=== PATIENT | male | born 1930 ===

== ENCOUNTER 2018-06-13 17:50 | Inpatient (IN) | payer MEDICARE ==
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
[2018-06-13 19:30] LABS: URINE BILIRUBIN NEGATIVE (NEGATIVE); URINE BLOOD SMALL (NEGATIVE); URINE CLARITY SLIGHTY-CLOUDY (Clear); URINE COLOR AMBER (YELLOW); URINE GLUCOSE (UA) NEG (Normal); URINE HYALINE CAST 0-2 /hpf (0-2); URINE LEUKOCYTE ESTERASE NEG Leu/uL (Negative); URINE PROTEIN 30 mg/dL (NEGATIVE)
[2018-06-13 20:07] LABS: INR 1.1; PROTHROMBIN TIME 12.9 Seconds (9.8-13.1)
[2018-06-13 20:09] LABS: BASO # 0.1 K/uL (0.0-0.2); BASO % 0.7 % (0.0-2.0); EOS # 0.1 K/uL (0.0-0.7); EOS % 0.7 % (0.0-4.0); HEMOGLOBIN 11.7 g/dL (12.0-18.0); LYMPH # 2.2 K/uL (1.0-4.3); LYMPH % 24.9 % (20.0-40.0); MEAN CELL VOLUME 95.2 fl (80.0-94.0); MEAN CORPUSCULAR HEMOGLOBIN 31.2 pg (27.0-31.0); MEAN CORPUSCULAR HGB CONC 32.8 g/dL (33.0-37.0); MEAN PLATELET VOLUME 8.6 fl (7.2-11.7); MONO # 0.6 K/uL (0.0-0.8); MONO % 6.8 % (0.0-10.0); NEUT # 5.9 K/uL (1.8-7.0); NEUT % 66.9 % (50.0-75.0); NRBC % 0.1 % (0.0-0.0); RBC 3.75 Mil/uL (4.40-5.90); RED CELL DISTRIBUTION WIDTH 12.8 % (11.5-14.5); WHITE BLOOD COUNT 8.8 K/uL (4.8-10.8)
[2018-06-13 20:10] LABS: PARTIAL THROMBOPLASTIN TIME 33.7 Seconds (25.6-37.1)
[2018-06-13 20:13] LABS: ALB/GLOB RATIO 1.2 (1.0-2.1); ALBUMIN 3.8 g/dL (3.5-5.0); BLOOD UREA NITROGEN 30 mg/dl (9-20); CALCIUM 8.8 mg/dL (8.4-10.2); GFR NON-AFRICAN AMERICAN 52
[2018-06-13 20:32] LABS: BARBITURATES, UR NEGATIVE (NEGATIVE); BENZODIAZEPINES, UR NEGATIVE (NEGATIVE); OPIATES, UR NEGATIVE (NEGATIVE); PHENCYCLIDINE, UR NEGATIVE (NEGATIVE)
[2018-06-13 20:32] LABS: ALT/SGPT 38 U/L (21-72); AST/SGOT 37 U/L (17-59)
[2018-06-13 23:27] VITALS: O2SAT 96
[2018-06-13] MEDS ORDERED: Alum-Mag Hydrox-Simethicone Susp (30 mL) PO PRN (23:44)
[2018-06-13] MEDS ORDERED: Magnesium Hydroxide Susp 30 ml UD PO PRN (23:44)
[2018-06-13] MEDS ORDERED: Bismuth Subsalicylate 262 mg/15 ml Sus (240 ml) PO PRN (23:44)
--- NOTE | 2018-06-14 00:14 | PCM.BM ---
<Jocelyn Talbert - Last Filed: 06/14/18 00:12> Treatment Plan Problems - Problems identified on initial assessmt Agitated/aggressive behavior Date Initiated: 06/14/18 Time Initiated: 00:13 Assessment reference: NA Status: Active Medication nonadherence Date Initiated: 06/14/18 Time Initiated: 00:13 Assessment reference: NA Status: Active Treatment assets and liabiliti Patient Assests: good support system Patient Liabilities: imparied memory - Milieu Protocol Maintain good personal hygiene: daily Encourage regular showers, daily Remind patient to perform daily oral care, daily Assist patient to perform ADL's Conduct patient checks and document Observation sheet: Q15 minutes Maintain personal safety: every shift Educate patient to report safety concerns to staff, every shift Monitor environment for contraband/sharps Medication safety: Monitor for expected outcome, potential side effects: every shift, Assess barriers to learning: every shift, Assess readiness for medication education: every shift <Varsha Bergeron - Last Filed: 06/14/18 09:00> - Diagnosis (1) Dementia with behavioral disturbance Status: Acute Interventions: Medication management, Individual and group therapy, Psychoeducation 06/14/18 09:00 (2) Mood disorder Status: Acute Interventions: Medication management, Individual and group therapy, Psychoeducation 06/14/18 09:01 <Lanie Park M - Last Filed: 06/15/18 14:16> Family Contact Family involvement: Family/SO is involved Family contact: Patient agrees to contact, Family has been contacted by patient, Telephone contact initiated by staff Family contact name: Raul Stevenson - son Family contacted how many times per week?: 2 - Outside Agency [facility] Care involvment: Information-sharing Agency contact number: [phone] Discharge/Continuing Care - Education Needs Education Needs: Family Medication, Family Diagnosis/Disease Process, Family Coping Skills, Family Placement options, Family Activities of Daily Living, Family Nutrition, Family Uses of Medical Equipment, Family Health Practices/Safety, Family Personal Hygiene/Grooming, Family Aftercare Safety Plan - Discharge Discharge Criteria: Tolerates medication w/o severe side effects, Free of agitation, Normal sleep pattern, Ability to care for self, Reduction of target symptoms, Other (Increased appetite) Discharge to:: Group Home Facility, Other (24 hour/care Assisted Living Facility) - Additional Comments 06/15/18 14:13 Pt discussed in team meeting. Reason for hospitalization reviewed and discussed. Pt's social and medical issues reviewed. Pt's medications reviewed and discussed. Please refer to attending psychiatrist progress not for addition information. Since admission, pt is easily irritable and agitated; pt refusing to eat and take medications. Pt is presently on 1:1 due to safety precautions. Tx plan reviewed and discussed. SW to continue to follow case. - Treatment Team Participation Discussed with Family/SO: Yes (Via telephone) Was Patient/Family/SO present at Treatment Team Meeting: Yes
[2018-06-14 07:07] LABS: IRON 44 ug/dL (49-181)
[2018-06-14 07:17] LABS: % IRON SATURATION 18 % (20-55); TOTAL IRON BINDING CAPACITY 251 ug/dL (250-450)
[2018-06-14 07:25] LABS: T4 7.18 ug/dl (5.5-11.0)
[2018-06-14 07:42] LABS: FERRITIN 93.6 ng/Ml (17.9-464)
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
--- NOTE | 2018-06-14 09:42 | CARD ---
APPROVED REPORT Date of service: 06/13/2018 EKG Measurement Heart [id number] <Conclusion> Normal sinus rhythm Right bundle branch block Left anterior fascicular block Bifascicular block Abnormal ECG
[2018-06-14] MEDS: Divalproex 125 mg Sprinkle Capsule PO SCH ×3 (09:43→17:34)
[2018-06-14] MEDS: Megestrol Acetate 40 mg/ml Cup PO SCH ×2 (09:43→12:01)
--- NOTE | 2018-06-14 10:47 | RAD ---
Date of service: 06/13/2018 HISTORY: ams COMPARISON: No prior. FINDINGS: LUNGS: No active pulmonary disease. PLEURA: No significant pleural effusion identified, no pneumothorax apparent. CARDIOVASCULAR: Calcific atherosclerotic changes are seen related to the thoracic aorta. Normal cardiac size. No pulmonary vascular congestion. OSSEOUS STRUCTURES: No significant abnormalities. VISUALIZED UPPER ABDOMEN: Normal. OTHER FINDINGS: None. IMPRESSION: No acute cardiopulmonary disease appreciated.
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
[2018-06-14] MEDS ORDERED: Dextrose 50% SYRINGE Inj (50 ml) IV PRN (12:40)
[2018-06-14] MEDS ORDERED: Glucagon Recombinant 1 mg Inj IM PRN (12:40)
[2018-06-14 13:12] LABS: FOLATE 12.8 ng/mL
[2018-06-14] MEDS: Insulin Lispro (humaLOG) 100 Units/ml Inj SC SCH (17:35)
[2018-06-15] MEDS: Insulin Lispro (humaLOG) 100 Units/ml Inj SC SCH ×3 (08:48→16:36)
--- NOTE | 2018-06-15 09:17 | PCM.PYCHPN ---
Psychiatric Progress Note - Psychiatric Progress Note Patient seen today, length of contact: Pt evaluated, case discussed w/ team, chart reviewed Patient Chief Complaint: Behavioral Disturbances/ Refusal to eat Problems Identified/Issues Discussed: Pt continues to be irritable, not cooperative with interview. He threw drinks at staff yesterday. He continues to have poor PO intake and poor insight/judgment. Case discussed w/ patient's son, Raul Stevenson, . Medications reviewed. Strapping Machine Operator given permission to modify medications as medically and psychiatrically indicated. Medication Change: No Medical Record Reviewed: Yes Consults ordered or reviewed: Medicine consult Mental Status Examination - Cognitive Function Orientation: Person Memory: Impaired Attention: Poor Concentration: Poor Association: Loose Fund of Knowledge: Poor Decription of patient's judgement and insights: Poor I/J - Mood Mood: Other ("Bad") - Affect Affect: Constricted - Speech Speech: Soft - Formal Thought Process Formal Thought Process: Loosening of associations Psychotic Thoughts and Behaviors: NO AH/VH - Suicidal Ideation Suicidal Ideation: No - Homicidal Ideation Homicidal Ideation: No Goal/Treatment Plan - Goal/Treatment Plan Need for Continued Stay: Remain at risks for inpatient hospitalization, Discharge may exacerbated symptoms, Severe functional impairment Progress Toward Problem(s) and Goals/Treatment Plan: Dementia with Behavioral Disturbances; Mood Disorder NOS -Continue Depakote and Remeron -Medicine consult -Dietitian referral -Individual and group therapy -1:1 for safety -Case discussed w/ patient's son, Raul Stevenson, -Disposition planning
[2018-06-15] MEDS: Divalproex 125 mg Sprinkle Capsule PO SCH ×5 (10:58→21:07)
[2018-06-15] MEDS: Megestrol Acetate 40 mg/ml Cup PO SCH ×2 (10:59→13:37)
[2018-06-16] MEDS: Divalproex 125 mg Sprinkle Capsule PO SCH ×3 (08:42→18:41)
[2018-06-16] MEDS: Insulin Lispro (humaLOG) 100 Units/ml Inj SC SCH ×4 (08:43→21:44)
--- NOTE | 2018-06-16 09:30 | PCM.PYCHPN ---
Psychiatric Progress Note - Psychiatric Progress Note Patient seen today, length of contact: Pt evaluated, case discussed w/ team, chart reviewed Patient Chief Complaint: Behavioral Disturbances/ Refusal to eat Problems Identified/Issues Discussed: Pt continues to be irritable, not cooperative with interview. He is calmer when his family is present and is more cooperative with eating when they are present. He has not been aggressive towards staff, but curses at people. Medication Change: No Medical Record Reviewed: Yes Consults ordered or reviewed: Medicine consult Mental Status Examination - Cognitive Function Orientation: Person Memory: Impaired Attention: Poor Concentration: Poor Association: Loose Fund of Knowledge: Poor Decription of patient's judgement and insights: Poor I/J - Mood Mood: Other ("Bad") - Affect Affect: Constricted - Speech Speech: Soft - Formal Thought Process Formal Thought Process: Loosening of associations Psychotic Thoughts and Behaviors: NO AH/VH - Suicidal Ideation Suicidal Ideation: No - Homicidal Ideation Homicidal Ideation: No Goal/Treatment Plan - Goal/Treatment Plan Need for Continued Stay: Remain at risks for inpatient hospitalization, Discharge may exacerbated symptoms, Severe functional impairment Progress Toward Problem(s) and Goals/Treatment Plan: Dementia with Behavioral Disturbances; Mood Disorder NOS -Continue Depakote and Remeron -Medicine consult -Dietitian referral -Individual and group therapy -1:1 for safety -Case discussed w/ patient's son, Raul Stevenson, -Disposition planning
[2018-06-16] MEDS: Megestrol Acetate 40 mg/ml Cup PO SCH (13:31)
[2018-06-17] MEDS: Divalproex 125 mg Sprinkle Capsule PO SCH ×4 (09:00→18:07)
--- NOTE | 2018-06-17 09:15 | PCM.PYCHPN ---
Psychiatric Progress Note - Psychiatric Progress Note Patient seen today, length of contact: Pt evaluated, case discussed w/ team, chart reviewed Patient Chief Complaint: Behavioral Disturbances/ Poor appetite Problems Identified/Issues Discussed: Pt continues to be irritable, does not want to talk with science writer. He continues to have poor PO intake at times, but eats more when encouraged by his family. He has not been violent or aggressive, but continues to curse at people. Medication Change: No Medical Record Reviewed: Yes Consults ordered or reviewed: Medicine consult Mental Status Examination - Cognitive Function Orientation: Person Memory: Impaired Attention: Poor Concentration: Poor Association: Loose Fund of Knowledge: Poor Decription of patient's judgement and insights: Poor I/J - Mood Mood: Other ("Bad") - Affect Affect: Constricted - Speech Speech: Soft - Formal Thought Process Formal Thought Process: Loosening of associations Psychotic Thoughts and Behaviors: NO AH/VH - Suicidal Ideation Suicidal Ideation: No - Homicidal Ideation Homicidal Ideation: No Goal/Treatment Plan - Goal/Treatment Plan Need for Continued Stay: Remain at risks for inpatient hospitalization, Discharge may exacerbated symptoms, Severe functional impairment Progress Toward Problem(s) and Goals/Treatment Plan: Dementia with Behavioral Disturbances; Mood Disorder NOS -Continue Depakote and Remeron -Medicine consult -Dietitian referral -Individual and group therapy -1:1 for safety -Case discussed w/ patient's son, Raul Stevenson, -Disposition planning
[2018-06-17] MEDS: Insulin Lispro (humaLOG) 100 Units/ml Inj SC SCH ×3 (12:33→21:04)
[2018-06-17] MEDS: Megestrol Acetate 40 mg/ml Cup PO SCH (12:38)
[2018-06-18] MEDS: Divalproex 125 mg Sprinkle Capsule PO SCH ×4 (09:00→17:19)
[2018-06-18] MEDS: Megestrol Acetate 40 mg/ml Cup PO SCH (09:35)
[2018-06-18] MEDS: Insulin Lispro (humaLOG) 100 Units/ml Inj SC SCH ×4 (11:30→21:03)
--- NOTE | 2018-06-18 12:26 | PCM.PYCHPN ---
Psychiatric Progress Note - Psychiatric Progress Note Patient seen today, length of contact: Pt evaluated, case discussed w/ team, chart reviewed Patient Chief Complaint: seen seated in lynne chair, requires redirection, physically agressive toward staff, coursing at times, intermittent adherence with medication Problems Identified/Issues Discussed: alteration in cognition alteration in self care Medical Problems: pt chart pt being followed by hospitalist Diagnostic Results: per psychiatry per medicine per nursing per clinical social work aide per recreational therapy DSM 5 Symptoms Update: some what less irritability remains requiring total care Medication Change: No Medical Record Reviewed: Yes Consults ordered or reviewed: per hospitalist Mental Status Examination - Cognitive Function Orientation: Person Memory: Impaired Attention: Poor Concentration: Poor Association: Loose Fund of Knowledge: Poor Decription of patient's judgement and insights: poor - Mood Mood: Other ("Bad") - Affect Affect: Constricted - Speech Speech: Soft - Formal Thought Process Formal Thought Process: Loosening of associations - Suicidal Ideation Suicidal Ideation: No - Homicidal Ideation Homicidal Ideation: No Goal/Treatment Plan - Goal/Treatment Plan Need for Continued Stay: Remain at risks for inpatient hospitalization, Discharge may exacerbated symptoms, Severe functional impairment Progress Toward Problem(s) and Goals/Treatment Plan: inpt milieu adjust meds per status remains requiring 1 to to for safet/falls discharge planning in progress Estimated Date of D/C: 06/24/18 - Smoking Cessation Smoking Cessation Initiated: No Reason for not providing: pt defers
[2018-06-19] MEDS: Insulin Lispro (humaLOG) 100 Units/ml Inj SC SCH ×4 (08:33→21:22)
[2018-06-19] MEDS: Divalproex 125 mg Sprinkle Capsule PO SCH ×4 (09:33→18:37)
[2018-06-19] MEDS: Megestrol Acetate 40 mg/ml Cup PO SCH ×2 (09:34→13:18)
--- NOTE | 2018-06-19 09:38 | PCM.PYCHPN ---
Psychiatric Progress Note - Psychiatric Progress Note Patient seen today, length of contact: Pt evaluated, case discussed w/ team, chart reviewed Patient Chief Complaint: ok Problems Identified/Issues Discussed: pt evaluated seen in bed , confused oriented to person only , reported by staff to have episodes of behavioral disturbances, continues to be physically threatening and attempts to wander DSM 5 Symptoms Update: major neurocognitive disorder with behavioral disturbances Medication Change: No Medical Record Reviewed: Yes Mental Status Examination - Cognitive Function Orientation: Person Memory: Impaired Attention: Poor Concentration: Poor Association: Loose Fund of Knowledge: Poor - Mood Mood: Other ("Bad") - Affect Affect: Constricted - Speech Speech: Soft - Formal Thought Process Formal Thought Process: Loosening of associations - Suicidal Ideation Suicidal Ideation: No - Homicidal Ideation Homicidal Ideation: No Goal/Treatment Plan - Goal/Treatment Plan Need for Continued Stay: Remain at risks for inpatient hospitalization, Discharge may exacerbated symptoms, Severe functional impairment Progress Toward Problem(s) and Goals/Treatment Plan: continue 1:1 observation for safety continue remeron, depakote and risoperidone Estimated Date of D/C: 06/24/18
[2018-06-19] MEDS: Risperidone M tab 0.5MG PO PRN (13:16)
--- NOTE | 2018-06-20 08:46 | PCM.PYCHPN ---
Psychiatric Progress Note - Psychiatric Progress Note Patient seen today, length of contact: Pt evaluated, case discussed w/ team, chart reviewed Patient Chief Complaint: Behavioral Disturbances/ Poor appetite Problems Identified/Issues Discussed: Pt continues to be irritable, labile and agitated at times w/ intermittent PO intake. Medication Change: No Medical Record Reviewed: Yes Consults ordered or reviewed: Medicine consult Mental Status Examination - Cognitive Function Orientation: Person Memory: Impaired Attention: Poor Concentration: Poor Association: Loose Fund of Knowledge: Poor Decription of patient's judgement and insights: Poor I/J - Mood Mood: Other ("Bad") - Affect Affect: Constricted - Speech Speech: Soft - Formal Thought Process Formal Thought Process: Loosening of associations Psychotic Thoughts and Behaviors: NO AH/VH - Suicidal Ideation Suicidal Ideation: No - Homicidal Ideation Homicidal Ideation: No Goal/Treatment Plan - Goal/Treatment Plan Need for Continued Stay: Remain at risks for inpatient hospitalization, Discharge may exacerbated symptoms, Severe functional impairment Progress Toward Problem(s) and Goals/Treatment Plan: Dementia with Behavioral Disturbances; Mood Disorder NOS -Continue Depakote and Remeron -Medicine consult -Dietitian referral -Individual and group therapy -1:1 for safety -Case discussed w/ patient's son, Raul Stevenson, -Recheck VPA level -Monitor caloric intake -Disposition planning Estimated Date of D/C: 06/24/18
[2018-06-20] MEDS ORDERED: Divalproex 125 mg Sprinkle Capsule PO SCH ×3 (09:00→13:00)
[2018-06-20] MEDS: Insulin Lispro (humaLOG) 100 Units/ml Inj SC SCH ×4 (09:06→21:18)
[2018-06-20] MEDS: Megestrol Acetate 40 mg/ml Cup PO SCH (13:05)
[2018-06-20] MEDS: Divalproex 125 mg Sprinkle Capsule PO SCH ×2 (17:10→18:30)
[2018-06-21 05:56] LABS: BASO # 0.1 K/uL (0.0-0.2); BASO % 0.5 % (0.0-2.0); EOS # 0.1 K/uL (0.0-0.7); EOS % 0.6 % (0.0-4.0); HEMOGLOBIN 12.8 g/dL (12.0-18.0); LYMPH # 2.3 K/uL (1.0-4.3); LYMPH % 18.7 % (20.0-40.0); MEAN CELL VOLUME 94.4 fl (80.0-94.0); MEAN CORPUSCULAR HEMOGLOBIN 30.8 pg (27.0-31.0); MEAN CORPUSCULAR HGB CONC 32.6 g/dL (33.0-37.0); MEAN PLATELET VOLUME 7.6 fl (7.2-11.7); MONO # 1.3 K/uL (0.0-0.8); MONO % 10.2 % (0.0-10.0); NEUT # 8.6 K/uL (1.8-7.0); RBC 4.18 Mil/uL (4.40-5.90); RED CELL DISTRIBUTION WIDTH 13.1 % (11.5-14.5); WHITE BLOOD COUNT 12.3 K/uL (4.8-10.8)
[2018-06-21 06:08] LABS: ALBUMIN 3.7 g/dL (3.5-5.0); CALCIUM 9.4 mg/dL (8.4-10.2)
--- NOTE | 2018-06-21 10:50 | PCM.PYCHPN ---
Psychiatric Progress Note - Psychiatric Progress Note Patient seen today, length of contact: Pt evaluated, case discussed w/ team, chart reviewed Patient Chief Complaint: Behavioral Disturbances/ Poor appetite Problems Identified/Issues Discussed: Pt continues to be irritable, labile and agitated at times w/ intermittent PO intake. Case discussed w/ patient's sonRaul ([phone]). Medication Change: Yes (Change timing of Depakote ) Medical Record Reviewed: Yes Consults ordered or reviewed: Medicine consult Mental Status Examination - Cognitive Function Orientation: Person Memory: Impaired Attention: Poor Concentration: Poor Association: Loose Fund of Knowledge: Poor Decription of patient's judgement and insights: Poor I/J - Mood Mood: Other ("Bad") - Affect Affect: Constricted - Speech Speech: Soft - Formal Thought Process Formal Thought Process: Loosening of associations Psychotic Thoughts and Behaviors: NO AH/VH - Suicidal Ideation Suicidal Ideation: No - Homicidal Ideation Homicidal Ideation: No Goal/Treatment Plan - Goal/Treatment Plan Need for Continued Stay: Remain at risks for inpatient hospitalization, Discharge may exacerbated symptoms, Severe functional impairment Progress Toward Problem(s) and Goals/Treatment Plan: Dementia with Behavioral Disturbances; Mood Disorder NOS -Continue Depakote, will change timing of dosage to increase compliance -Continue Remeron -GI consult to determine if PEG tube is indicated -Medicine consult -PT -Dietitian referral -Individual and group therapy -1:1 for safety -Case discussed w/ patient's son, Raul Stevenson, -Monitor caloric intake -Disposition planning Estimated Date of D/C: 06/24/18
[2018-06-21] MEDS: Insulin Lispro (humaLOG) 100 Units/ml Inj SC SCH ×3 (11:45→21:15)
[2018-06-21] MEDS: Divalproex 125 mg Sprinkle Capsule PO SCH ×3 (13:14→19:26)
[2018-06-21] MEDS: Megestrol Acetate 40 mg/ml Cup PO SCH ×3 (13:15→19:28)
[2018-06-21] MEDS ORDERED: Divalproex 125 mg Sprinkle Capsule PO SCH (17:00)
--- NOTE | 2018-06-22 08:38 | PCM.PYCHPN ---
Psychiatric Progress Note - Psychiatric Progress Note Patient seen today, length of contact: Pt evaluated, case discussed w/ team, chart reviewed Patient Chief Complaint: Behavioral Disturbances/ Poor appetite Problems Identified/Issues Discussed: Pt continues to have poor PO intake. He is less irritable with staff, but becomes irritated with cares. Patient continues to have chronic cognitive deficits due to dementia. Medication Change: No Medical Record Reviewed: Yes Consults ordered or reviewed: Medicine consult Mental Status Examination - Cognitive Function Orientation: Person Memory: Impaired Attention: Poor Concentration: Poor Association: Loose Fund of Knowledge: Poor Decription of patient's judgement and insights: Poor I/J - Mood Mood: Other ("Bad") - Affect Affect: Constricted - Speech Speech: Soft - Formal Thought Process Formal Thought Process: Loosening of associations Psychotic Thoughts and Behaviors: NO AH/VH - Suicidal Ideation Suicidal Ideation: No - Homicidal Ideation Homicidal Ideation: No Goal/Treatment Plan - Goal/Treatment Plan Need for Continued Stay: Remain at risks for inpatient hospitalization, Discharge may exacerbated symptoms, Severe functional impairment Progress Toward Problem(s) and Goals/Treatment Plan: Dementia with Behavioral Disturbances; Mood Disorder NOS -Continue Depakote -Continue Remeron -GI consult to determine if PEG tube is indicated -Medicine consult -PT -Dietitian referral -Individual and group therapy -1:1 for safety -Case discussed w/ patient's son, Raul Stevenson, -Monitor caloric intake -Disposition planning Estimated Date of D/C: 06/24/18
[2018-06-22] MEDS: Insulin Lispro (humaLOG) 100 Units/ml Inj SC SCH ×4 (08:58→21:05)
--- NOTE | 2018-06-22 12:10 | PCM.BM ---
Treatment Plan Problems - Problems identified on initial assessmt Agitated/aggressive behavior Date Initiated: 06/14/18 Time Initiated: 00:13 Assessment reference: NA Status: Active Medication nonadherence Date Initiated: 06/14/18 Time Initiated: 00:13 Assessment reference: NA Status: Active Treatment assets and liabiliti Patient Assests: good support system Patient Liabilities: imparied memory - Milieu Protocol Maintain good personal hygiene: daily Encourage regular showers, daily Remind patient to perform daily oral care, daily Assist patient to perform ADL's Conduct patient checks and document Observation sheet: Q15 minutes Maintain personal safety: every shift Educate patient to report safety concerns to staff, every shift Monitor environment for contraband/sharps Medication safety: Monitor for expected outcome, potential side effects: every shift, Assess barriers to learning: every shift, Assess readiness for medication education: every shift Milieu Narrative: Dementia with Behavioral Disturbances; Mood Disorder NOS -Continue Depakote -Continue Remeron -GI consult to determine if PEG tube is indicated -Medicine consult -PT -Dietitian referral -Individual and group therapy -1:1 for safety -Case discussed w/ patient's son, Raul Stevenson, -Monitor caloric intake -Disposition planning Family Contact Family involvement: Family/SO is involved Family contact: Patient agrees to contact, Family has been contacted by patient, Telephone contact initiated by staff Family contact name: Raul Stevenson - son Family contacted how many times per week?: 2 - Outside Agency [facility] Care involvment: Information-sharing Agency contact number: [phone] Discharge/Continuing Care - Education Needs Education Needs: Family Medication, Family Diagnosis/Disease Process, Family Coping Skills, Family Placement options, Family Activities of Daily Living, Family Nutrition, Family Uses of Medical Equipment, Family Health Practices/Safety, Family Personal Hygiene/Grooming, Family Aftercare Safety Plan - Discharge Discharge Criteria: Tolerates medication w/o severe side effects, Free of agitation, Normal sleep pattern, Ability to care for self, Reduction of target symptoms, Other (Increased appetite) Discharge to:: Nursing Home Facility, Other (24 hour/care Assisted Living Facility) - Additional Comments 06/15/18 14:13 Pt discussed in team meeting. Reason for hospitalization reviewed and discussed. Pt's social and medical issues reviewed. Pt's medications reviewed and discussed. Please refer to attending psychiatrist progress not for addition information. Since admission, pt is easily irritable and agitated; pt refusing to eat and take medications. Pt is presently on 1:1 due to safety precautions. Tx plan reviewed and discussed. SW to continue to follow case. - Treatment Team Participation Patient/Family/SO Statement: Dementia with Behavioral Disturbances; Mood Disorder NOS -Continue Depakote -Continue Remeron -GI consult to determine if PEG tube is indicated -Medicine consult -PT -Dietitian referral -Individual and group therapy -1:1 for safety -Case discussed w/ patient's son, Raul Stevenson, -Monitor caloric intake -Disposition planning Discussed with Family/SO: Yes (Via telephone) Was Patient/Family/SO present at Treatment Team Meeting: Yes Treatment Plan Review Patient participation: No Family/SO/Caregiver participation: No Additional Comments: Pt discussed in team meeting. Pt unable to attend team meeting due to current mental status. Pt has a Health care proxy on file. Pt's progress and bx on the unit reviewed and discussed. Pt remains increasingly confused and forgetful. Pt continues to refuse to eat despite multiple encouragement and promptings. Pt also continues to refuse prescribed medications; however, will comply if family is present. Pt's family observed to bring food from home; however, pt observed to continue to have poor intake. GI consult requested to discuss and review other treatment and intervention options. Pt remains on 1:1 for safety. Pt's medical issues reviewed and RN/MD to continue to monitor pt medically. Pt continues to display aggressive bx's during cares. Tx plan reviewed and discussed. SW to continue to follow case. - Problem Agitated/aggressive behavior Date Initiated: 06/13/18 Time Initiated: 00:13 Progress toward outcomes: unchanged (Pt continues to present with aggressive bx during cares and when re-directed.) Medication nonadherence Date Initiated: 06/13/18 Time Initiated: 00:13 Progress toward outcomes: unchanged (Pt continues to refuse to take his medications. Pt is intermittently compliant with medications if given by family during visiting hours.) Less Than Optimal Nutrition Date Initiated: 06/13/18 Time Initiated: 12:11 Progress toward outcomes: unchanged (Pt refusing to eat despite encouragement and motivation. Pt's appetite is poor.) - Discharge / Continuing Care Discharge to:: Nursing Home Facility Behavioral Health Services: Other (Medication management) Health Needs: Follow up care/test, Doctor appointments, Special equipment, Nutritional, Medications/Rx, Educational
[2018-06-22] MEDS: Divalproex 125 mg Sprinkle Capsule PO SCH (13:11)
[2018-06-22] MEDS: Megestrol Acetate 40 mg/ml Cup PO SCH (13:15)
--- NOTE | 2018-06-22 14:01 | CP.PCM.CON ---
History of Present Illness - History of Present Illness History of Present Illness: GI note for Dr. Verdugo 87M present to hospital in psych unit. GI consulted for possible PEG placement. Patient has a history of dementia with behavioral disturbances and mood disorders. He does not take enough PO diet. He has a poor appetite and with his behavioral issues, he does not allow being fed. Calorie count was startes two days ago that show patient barely had any intake. Patient only had liquid intake with some supplements. Very minimal calorie, no where near goal. PMH: HTN, Hyperthyroid, Gastritis, BPH, Dementia with Behavioral disturbances, Mood disorder Allergies: As per chart Past Patient History - Past Social History Alcohol: None Drugs: Denies - CARDIAC Hx Cardiac Disorders: No Hx Hypertension: Yes - PULMONARY Hx Tuberculosis: No - NEUROLOGICAL Hx Alzheimer's Disease: Yes Hx Dementia: Yes - RENAL Other/Comment: bph - ENDOCRINE/METABOLIC Hx Hypothyroidism: Yes - HEMATOLOGICAL/ONCOLOGICAL Hx Cancer: No Hx Human Immunodeficiency Virus (HIV): No - MUSCULOSKELETAL/RHEUMATOLOGICAL Hx Falls: Yes - GENITOURINARY/GYNECOLOGICAL Hx Sexually Transmitted Disorders: No - PSYCHIATRIC Hx Substance Use: No Meds Allergies/Adverse Reactions: Allergies Allergy/AdvReac Type Severity Reaction Status Date / Time cortisone Allergy RASH Verified 06/13/18 17:53 prednisone Allergy RASH Verified 06/13/18 17:53 - Medications Medications: Current Medications Acetaminophen (Tylenol 325mg Tab) 650 mg PO Q4 PRN PRN Reason: Pain, moderate (4-7) Al Hydrox/Mg Hydrox/Simethicone (Maalox Plus 30 Ml) 30 ml PO Q4 PRN PRN Reason: Dyspepsia Amlodipine Besylate (Norvasc) 10 mg PO DAILY [facility] Last Admin: 06/22/18 08:59 Dose: Not Given Bismuth Subsalicylate (Pepto-Bismol) 524 mg PO Q4 PRN PRN Reason: Diarrhea Dextrose (Dextrose 50% Inj) 0 ml IV STAT PRN; Protocol PRN Reason: Hypoglycemia Protocol Dextrose (Glutose 15) 0 gm PO ONCE PRN; Protocol PRN Reason: Hypoglycemia Protocol Divalproex Sodium (Depakote Sprinkles) 1,000 mg PO DAILY@1300 [facility] Last Admin: 06/22/18 13:11 Dose: 1,000 mg Donepezil HCl (Aricept) 10 mg PO HS [facility] Last Admin: 06/21/18 21:15 Dose: Not Given Famotidine (Pepcid) 20 mg PO DAILY [facility] Last Admin: 06/22/18 08:59 Dose: Not Given Glucagon (Glucagen Diagnostic Kit) 0 mg IM STAT PRN; Protocol PRN Reason: Hypoglycemia Protocol Insulin Human Lispro (Humalog) 0 units SC [facility]; Protocol Last Admin: 06/22/18 13:14 Dose: Not Given Lorazepam (Ativan) 0.5 mg PO HS PRN PRN Reason: Insomnia Stop: 06/27/18 23:45 Lorazepam (Ativan) 0.5 mg PO Q6 PRN PRN Reason: Anixety/Agitation Stop: 06/27/18 23:45 Lorazepam (Ativan) 0.5 mg IM Q8 PRN PRN Reason: Agitation Magnesium Hydroxide (Milk Of Magnesia) 30 ml PO HS PRN PRN Reason: Constipation Megestrol Acetate (Megace) 400 mg PO DAILY [facility] Last Admin: 06/22/18 13:15 Dose: 400 mg Mirtazapine (Remeron 15mg Odt) 15 mg PO HS [facility] Last Admin: 06/21/18 21:15 Dose: Not Given Propylthiouracil (Propylthiouracil) 50 mg PO DAILY [facility] Last Admin: 06/22/18 08:59 Dose: Not Given Risperidone (Risperdal M-Tab) 0.5 mg PO Q12 PRN PRN Reason: Agitation Last Admin: 06/19/18 13:16 Dose: 0.5 mg Tamsulosin HCl (Flomax) 0.4 mg PO DAILY [facility] Last Admin: 06/22/18 08:58 Dose: Not Given Physical Exam - Constitutional Appears: Combative (when approached) - Respiratory Exam Respiratory Exam: Clear to Auscultation Bilateral, NORMAL BREATHING PATTERN - Cardiovascular Exam Cardiovascular Exam: REGULAR RHYTHM, +S1, +S2 - GI/Abdominal Exam GI & Abdominal Exam: Soft. absent: Distended, Firm, Guarding, Rebound, Rigid, Tenderness - Extremities Exam Extremities exam: Negative for: pedal edema, tenderness - Neurological Exam Additional comments: dementia Results - Vital Signs Recent Vital Signs: Last Vital Signs Temp 97.1 F L 06/22/18 06:00 Pulse 74 06/22/18 06:00 Resp 18 06/22/18 06:00 BP 122/77 06/22/18 06:00 Pulse Ox 96 06/13/18 23:26 - Labs Result Diagrams: 06/21/18 05:47 06/21/18 05:47 Labs: Laboratory Results - last 24 hr 06/21/18 06/21/18 06/22/18 11:16 15:39 06:40 POC Glucose (mg/dL) 138 H 157 H 130 H Assessment & Plan - Assessment and Plan (Free Text) Assessment: 87M with poor PO intake, Consult for PEG placement Plan: - Will place patient on schedule for tomorrow for PEG - NPO past midnight. Time to be determined - will speak with family members about options on procedure Discussed with Dr. Lucina Philippe, PGY3
[2018-06-23] MEDS: Insulin Lispro (humaLOG) 100 Units/ml Inj SC SCH ×4 (08:54→21:21)
--- NOTE | 2018-06-23 09:19 | PCM.PYCHPN ---
Psychiatric Progress Note - Psychiatric Progress Note Patient seen today, length of contact: Pt evaluated, case discussed w/ team, chart reviewed Patient Chief Complaint: Behavioral Disturbances/ Poor appetite Problems Identified/Issues Discussed: Fire Apparatus Sprinkler Inspector spoke with patient's son, Raul [phone], who states that the family has decided not to get a PEG tube at this time. They are concerned about him potentially taking out the tube due to his continued behavioral disturbances, concerned about his risk for infection and his overall quality of life with the PEG tube. He stated that he has discussed this with his other siblings and his mother and they are all in agreement that they do not want a PEG tube placed. Patient continues to have intermittent periods of irritability and agitation. Patient continues to have chronic cognitive deficits due to dementia. Medication Change: No Medical Record Reviewed: Yes Consults ordered or reviewed: Medicine consult Mental Status Examination - Cognitive Function Orientation: Person Memory: Impaired Attention: Poor Concentration: Poor Association: Loose Fund of Knowledge: Poor Decription of patient's judgement and insights: Poor I/J - Mood Mood: Other ("Bad") - Affect Affect: Constricted - Speech Speech: Soft - Formal Thought Process Formal Thought Process: Loosening of associations Psychotic Thoughts and Behaviors: NO AH/VH - Suicidal Ideation Suicidal Ideation: No - Homicidal Ideation Homicidal Ideation: No Goal/Treatment Plan - Goal/Treatment Plan Need for Continued Stay: Remain at risks for inpatient hospitalization, Discharge may exacerbated symptoms, Severe functional impairment Progress Toward Problem(s) and Goals/Treatment Plan: Dementia with Behavioral Disturbances; Mood Disorder NOS -Continue Depakote, will recheck VPA level -Continue Remeron -Family has declined PEG tube placement at this time; GI consult appreciated -Medicine consult -PT -Dietitian consult -1:1 for safety -Case discussed w/ patient's son, Raul Stevenson, -Disposition planning Estimated Date of D/C: 06/27/18
[2018-06-23] MEDS: Divalproex 125 mg Sprinkle Capsule PO SCH ×2 (13:02→18:29)
[2018-06-23] MEDS: Megestrol Acetate 40 mg/ml Cup PO SCH ×2 (13:07→18:29)
--- NOTE | 2018-06-23 18:13 | CP.PCM.PN ---
Subjective - Date & Time of Evaluation Date of Evaluation: 06/23/18 Time of Evaluation: 10:00 - Subjective Subjective: No new complaints Objective - Vital Signs/Intake and Output Vital Signs (last 24 hours): Temp Pulse Resp BP Pulse Ox 97.7 F 85 19 152/89 H 96 06/23/18 06:00 06/23/18 06:00 06/23/18 06:00 06/23/18 06:00 06/13/18 23:26 - Medications Medications: Current Medications Acetaminophen (Tylenol 325mg Tab) 650 mg PO Q4 PRN PRN Reason: Pain, moderate (4-7) Al Hydrox/Mg Hydrox/Simethicone (Maalox Plus 30 Ml) 30 ml PO Q4 PRN PRN Reason: Dyspepsia Amlodipine Besylate (Norvasc) 10 mg PO DAILY [facility] Last Admin: 06/22/18 08:59 Dose: Not Given Bismuth Subsalicylate (Pepto-Bismol) 524 mg PO Q4 PRN PRN Reason: Diarrhea Dextrose (Dextrose 50% Inj) 0 ml IV STAT PRN; Protocol PRN Reason: Hypoglycemia Protocol Dextrose (Glutose 15) 0 gm PO ONCE PRN; Protocol PRN Reason: Hypoglycemia Protocol Divalproex Sodium (Depakote Sprinkles) 1,000 mg PO DAILY@1300 [facility] Last Admin: 06/22/18 13:11 Dose: 1,000 mg Donepezil HCl (Aricept) 10 mg PO HS [facility] Last Admin: 06/22/18 21:04 Dose: 10 mg Famotidine (Pepcid) 20 mg PO DAILY [facility] Last Admin: 06/22/18 08:59 Dose: Not Given Glucagon (Glucagen Diagnostic Kit) 0 mg IM STAT PRN; Protocol PRN Reason: Hypoglycemia Protocol Insulin Human Lispro (Humalog) 0 units SC [facility]; Protocol Last Admin: 06/23/18 16:27 Dose: Not Given Lorazepam (Ativan) 0.5 mg PO HS PRN PRN Reason: Insomnia Stop: 06/27/18 23:45 Lorazepam (Ativan) 0.5 mg PO Q6 PRN PRN Reason: Anixety/Agitation Stop: 06/27/18 23:45 Lorazepam (Ativan) 0.5 mg IM Q8 PRN PRN Reason: Agitation Magnesium Hydroxide (Milk Of Magnesia) 30 ml PO HS PRN PRN Reason: Constipation Megestrol Acetate (Megace) 400 mg PO DAILY [facility] Last Admin: 06/22/18 13:15 Dose: 400 mg Mirtazapine (Remeron 15mg Odt) 15 mg PO HS [facility] Last Admin: 06/22/18 21:04 Dose: 15 mg Propylthiouracil (Propylthiouracil) 50 mg PO DAILY [facility] Last Admin: 06/22/18 08:59 Dose: Not Given Risperidone (Risperdal M-Tab) 0.5 mg PO Q12 PRN PRN Reason: Agitation Last Admin: 06/19/18 13:16 Dose: 0.5 mg Tamsulosin HCl (Flomax) 0.4 mg PO DAILY [facility] Last Admin: 06/22/18 08:58 Dose: Not Given - Labs Labs: 06/21/18 05:47 06/21/18 05:47 PT 12.9 Seconds (9.8-13.1) 06/13/18 19:00 INR 1.1 06/13/18 19:00 APTT 33.7 Seconds (25.6-37.1) 06/13/18 19:00 - Head Exam Head Exam: ATRAUMATIC - Eye Exam Eye Exam: PERRL - ENT Exam ENT Exam: Mucous Membranes Moist - Neck Exam Neck Exam: Full ROM - Cardiovascular Exam Cardiovascular Exam: REGULAR RHYTHM - GI/Abdominal Exam GI & Abdominal Exam: Soft Assessment and Plan (1) Weight decreasing Assessment & Plan: Athis point family has decided against PEG procedure. If patient continues to be unable to ingest adequate calories reconsult with me. Status: Acute
[2018-06-24] MEDS: Insulin Lispro (humaLOG) 100 Units/ml Inj SC SCH ×4 (07:30→21:19)
--- NOTE | 2018-06-24 10:57 | PCM.PYCHPN ---
Psychiatric Progress Note - Psychiatric Progress Note Patient seen today, length of contact: Pt evaluated, case discussed w/ team, chart reviewed Patient Chief Complaint: Behavioral Disturbances/ Poor appetite Problems Identified/Issues Discussed: Patient is less irritable. No acute aggression or threatening behaviors. He has better compliance with medications and eating when his family assists him. Tube Coverer spoke with patient's son on 06/23/18, Raul [phone], who states that the family has decided not to get a PEG tube at this time. They are concerned about him potentially taking out the tube due to his continued behavioral disturbances, concerned about his risk for infection and his overall quality of life with the PEG tube. He stated that he has discussed this with his other siblings and his mother and they are all in agreement that they do not want a PEG tube placed. Medication Change: No Medical Record Reviewed: Yes Consults ordered or reviewed: Medicine consult Mental Status Examination - Cognitive Function Orientation: Person Memory: Impaired Attention: Poor Concentration: Poor Association: Loose Fund of Knowledge: Poor Decription of patient's judgement and insights: Poor I/J - Mood Mood: Other ("Bad") - Affect Affect: Constricted - Speech Speech: Soft - Formal Thought Process Formal Thought Process: Loosening of associations Psychotic Thoughts and Behaviors: NO AH/VH - Suicidal Ideation Suicidal Ideation: No - Homicidal Ideation Homicidal Ideation: No Goal/Treatment Plan - Goal/Treatment Plan Need for Continued Stay: Discharge may exacerbated symptoms, Severe functional impairment Progress Toward Problem(s) and Goals/Treatment Plan: Dementia with Behavioral Disturbances; Mood Disorder NOS -Continue Depakote, will recheck VPA level -Continue Remeron -Family has declined PEG tube placement at this time; GI consult appreciated -Medicine consult -PT -Dietitian consult -1:1 for safety -Case discussed w/ patient's son, Raul Stevenson, -Disposition planning Estimated Date of D/C: 06/28/18
[2018-06-24] MEDS: Divalproex 125 mg Sprinkle Capsule PO SCH (13:32)
[2018-06-24] MEDS: Risperidone M tab 0.5MG PO PRN (13:33)
[2018-06-24] MEDS: Megestrol Acetate 40 mg/ml Cup PO SCH (13:34)
[2018-06-25] MEDS: Insulin Lispro (humaLOG) 100 Units/ml Inj SC SCH ×4 (07:30→21:10)
--- NOTE | 2018-06-25 09:14 | PCM.PYCHPN ---
Psychiatric Progress Note - Psychiatric Progress Note Patient seen today, length of contact: Pt evaluated, case discussed w/ team, chart reviewed Patient Chief Complaint: fine Problems Identified/Issues Discussed: pt evaluated seen in bed , confused oriented to person only , calmer but reported by staff to have episodes of behavioral disturbances,trying to wander no reported side effects denied S/H I DSM 5 Symptoms Update: major neurocognitive disorder Medication Change: No Medical Record Reviewed: Yes Mental Status Examination - Cognitive Function Orientation: Person Memory: Impaired Attention: Poor Concentration: Poor Association: Loose Fund of Knowledge: Poor - Mood Mood: Other ("Bad") - Affect Affect: Constricted - Speech Speech: Soft - Formal Thought Process Formal Thought Process: Loosening of associations - Suicidal Ideation Suicidal Ideation: No - Homicidal Ideation Homicidal Ideation: No Goal/Treatment Plan - Goal/Treatment Plan Need for Continued Stay: Discharge may exacerbated symptoms, Severe functional impairment Progress Toward Problem(s) and Goals/Treatment Plan: continue 1:1 observation for safety continue remeron, depakote and risoperidone Estimated Date of D/C: 06/28/18
[2018-06-25] MEDS: Megestrol Acetate 40 mg/ml Cup PO SCH (12:36)
[2018-06-25] MEDS: Divalproex 125 mg Sprinkle Capsule PO SCH (12:38)
[2018-06-25] MEDS: Risperidone M tab 0.5MG PO PRN (12:39)
[2018-06-26 08:08] LABS: BASO % 0.2 % (0.0-2.0); EOS # 0.1 K/uL (0.0-0.7); EOS % 0.4 % (0.0-4.0); HEMOGLOBIN 14.9 g/dL (12.0-18.0); LYMPH # 2.4 K/uL (1.0-4.3); LYMPH % 12.6 % (20.0-40.0); MEAN CELL VOLUME 96.7 fl (80.0-94.0); MEAN CORPUSCULAR HEMOGLOBIN 30.7 pg (27.0-31.0); MEAN CORPUSCULAR HGB CONC 31.7 g/dL (33.0-37.0); MEAN PLATELET VOLUME 8.1 fl (7.2-11.7); MONO # 0.7 K/uL (0.0-0.8); MONO % 3.6 % (0.0-10.0); NEUT # 15.7 K/uL (1.8-7.0); NEUT % 83.2 % (50.0-75.0); NRBC % 0.1 % (0.0-0.0); RBC 4.86 Mil/uL (4.40-5.90); RED CELL DISTRIBUTION WIDTH 13.6 % (11.5-14.5)
[2018-06-26 08:37] LABS: WHITE BLOOD COUNT 18.8 K/uL (4.8-10.8)
[2018-06-26 08:38] LABS: ALBUMIN 4.1 g/dL (3.5-5.0); CALCIUM 9.8 mg/dL (8.4-10.2)
--- NOTE | 2018-06-26 14:01 | PCM.PYCHPN ---
Psychiatric Progress Note - Psychiatric Progress Note Patient seen today, length of contact: Pt evaluated, case discussed w/ team, chart reviewed Patient Chief Complaint: OK Problems Identified/Issues Discussed: pt evaluated seen in bed , confused oriented to person only , reported by staff to have episodes of behavioral disturbances,combative at times and trying to wander no reported side effects denied S/H I DSM 5 Symptoms Update: MAJOR NUROCOGNITIVE DISORDER Medication Change: No Medical Record Reviewed: Yes Mental Status Examination - Cognitive Function Orientation: Person Memory: Impaired Attention: Poor Concentration: Poor Association: Loose Fund of Knowledge: Poor - Mood Mood: Other ("Bad") - Affect Affect: Constricted - Speech Speech: Soft - Formal Thought Process Formal Thought Process: Loosening of associations - Suicidal Ideation Suicidal Ideation: No - Homicidal Ideation Homicidal Ideation: No Goal/Treatment Plan - Goal/Treatment Plan Need for Continued Stay: Discharge may exacerbated symptoms, Severe functional impairment Progress Toward Problem(s) and Goals/Treatment Plan: continue 1:1 observation for safety continue remeron, depakote and risoperidone Estimated Date of D/C: 06/28/18
[2018-06-26] MEDS: Insulin Lispro (humaLOG) 100 Units/ml Inj SC SCH ×3 (14:31→21:30)
[2018-06-26] MEDS: Divalproex 125 mg Sprinkle Capsule PO SCH (14:32)
[2018-06-26] MEDS: Megestrol Acetate 40 mg/ml Cup PO SCH (14:32)
[2018-06-26] MEDS: Sodium Chloride 0.45% 1,000 ML IV SCH (14:46)
[2018-06-27] MEDS: Sodium Chloride 0.45% 1,000 ML IV SCH ×4 (02:46→21:42)
[2018-06-27 08:36] LABS: BASO % 0.2 % (0.0-2.0); EOS # 0.1 K/uL (0.0-0.7); EOS % 0.6 % (0.0-4.0); HEMOGLOBIN 14.1 g/dL (12.0-18.0); LYMPH # 2.3 K/uL (1.0-4.3); LYMPH % 9.2 % (20.0-40.0); MEAN CELL VOLUME 98.9 fl (80.0-94.0); MEAN CORPUSCULAR HEMOGLOBIN 30.7 pg (27.0-31.0); MEAN CORPUSCULAR HGB CONC 31.1 g/dL (33.0-37.0); MEAN PLATELET VOLUME 8.3 fl (7.2-11.7); MONO % 3.8 % (0.0-10.0); NEUT # 21.5 K/uL (1.8-7.0); NEUT % 86.2 % (50.0-75.0); NRBC % 0.1 % (0.0-0.0); PLATELET COUNT 324 K/uL (130-400); RBC 4.59 Mil/uL (4.40-5.90); RED CELL DISTRIBUTION WIDTH 13.6 % (11.5-14.5); WHITE BLOOD COUNT 24.9 K/uL (4.8-10.8)
--- NOTE | 2018-06-27 09:43 | PCM.PYCHPN ---
Psychiatric Progress Note - Psychiatric Progress Note Patient seen today, length of contact: Pt evaluated, case discussed w/ team, chart reviewed Patient Chief Complaint: Behavioral Disturbances/ Poor appetite Problems Identified/Issues Discussed: Patient seems to be at a new baseline of functioning due to chronic worsening dementia. He is not acutely aggressive or threatening. He continues to have poor appetite and PO intake, but patient's family is not agreeable to PEG tube placement. Will discuss senior care treatment options with the family. Diagnostic Results: VPA <10 on 06/26/18 Medication Change: No Medical Record Reviewed: Yes Consults ordered or reviewed: Medicine consult Mental Status Examination - Cognitive Function Orientation: Person Memory: Impaired Attention: Poor Concentration: Poor Association: Loose Fund of Knowledge: Poor Decription of patient's judgement and insights: Chronic poor I/J - Mood Mood: Neutral - Affect Affect: Constricted - Speech Speech: Soft - Formal Thought Process Formal Thought Process: Loosening of associations Psychotic Thoughts and Behaviors: NO AH/VH - Suicidal Ideation Suicidal Ideation: No - Homicidal Ideation Homicidal Ideation: No Goal/Treatment Plan - Goal/Treatment Plan Need for Continued Stay: Severe functional impairment Progress Toward Problem(s) and Goals/Treatment Plan: Dementia with Behavioral Disturbances; Mood Disorder NOS -Continue Depakote, patient not currently compliant with treatment, VPA <10 -Continue Remeron -Family has declined PEG tube placement at this time; GI consult appreciated -Medicine consult -PT -Dietitian consult -Case discussed w/ patient's son, Raul Stevenson, -Disposition planning- will discuss termite treater helper treatment options with the family Estimated Date of D/C: 06/28/18
[2018-06-27 10:13] LABS: BANDS 2 % (0-2); LYMPHOCYTE 8 % (20-50); METAMYELOCYTE 1 % (0-0); MONOCYTE 4 % (0-10); NEUTROPHIL 85 % (42-75); TOTAL CELLS COUNTED 100
[2018-06-27 10:15] LABS: OVALOCYTES SLIGHT; PLATELET ESTIMATE NORMAL (NORMAL); TEARDROP CELLS SLIGHT; TOXIC GRANULATION PRESENT
[2018-06-27] MEDS: Insulin Lispro (humaLOG) 100 Units/ml Inj SC SCH ×4 (12:01→21:20)
[2018-06-27] MEDS: Megestrol Acetate 40 mg/ml Cup PO SCH (13:03)
--- NOTE | 2018-06-27 15:11 | CP.PCM.PCO ---
Physician Communication Note - Physician Communication Note Physician Communication Note: patient is 87 y/o male patient with severe dementia and agreesive beghavio Assessment/Plan Progress Note - Assessment/Plan Assessment (Free Text): 87 y/o male with PMH severe dementia with behavioral problems( aggressive behaviour), DM , HTN admitted to psych for management of aggressive behavior . Patient is severely demented , aggressive and has very poor PO intake . He is DNR / DNI and family refused PEG placement . His blood work up shows worsening of his renal function , hyperanatremia and leukocytosis secondary to dehydration and poor PO intake Na 156 BUN / cr 107/2.7 Hgb 14 WBC 24 K IVF was ordered and increased PO H2O intake recommended He is awake and alert , afebrile and hemodynamically stable , RR ranging 18-20 BP 1333/73 He has poor /guarded prognosis. Recommended Hospice referral . This was discussed with nursing staff 06/27 - Problems Patient Problems: Problem List (Active/Current) Problem Status Onset Code Dementia with behavioral disturbance Acute F03.91 Mood disorder Acute F39 Weight decreasing Acute R63.4
--- NOTE | 2018-06-27 17:08 | RAD ---
Date of service: 06/27/2018 PROCEDURE: CHEST RADIOGRAPH, 1 VIEW HISTORY: Worsening cough COMPARISON: 06/13/2018. FINDINGS: LUNGS: Clear. PLEURA: No pneumothorax or pleural fluid seen. CARDIOVASCULAR: No aortic atherosclerotic calcification present. No radiographic findings to suggest acute or significant cardiovascular disease. OSSEOUS STRUCTURES: No significant abnormalities. VISUALIZED UPPER ABDOMEN: Normal. OTHER FINDINGS: None. IMPRESSION: No active disease. No acute/significant interval changes.
[2018-06-27 18:24] LABS: URINE BACTERIA MANY (<OCC); URINE BILIRUBIN NEGATIVE (NEGATIVE); URINE BLOOD MODERATE (NEGATIVE); URINE CLARITY TURBID (Clear); URINE COLOR AMBER (YELLOW); URINE GLUCOSE (UA) NEG (Normal); URINE LEUKOCYTE ESTERASE LARGE Leu/uL (Negative); URINE PROTEIN 30 mg/dL (NEGATIVE)
[2018-06-27] MEDS: Divalproex 125 mg Sprinkle Capsule PO SCH (18:36)
[2018-06-27] MEDS ORDERED: cefTRIAXone 2 GM in Sodium Chloride 0.9% 100 ML IVPB STA (20:52)
[2018-06-28 06:14] LABS: BASO # 0.1 K/uL (0.0-0.2); BASO % 0.4 % (0.0-2.0); EOS # 0.1 K/uL (0.0-0.7); EOS % 0.3 % (0.0-4.0); HEMOGLOBIN 13.2 g/dL (12.0-18.0); LYMPH % 8.9 % (20.0-40.0); MEAN CORPUSCULAR HEMOGLOBIN 30.7 pg (27.0-31.0); MEAN CORPUSCULAR HGB CONC 31.6 g/dL (33.0-37.0); MEAN PLATELET VOLUME 8.4 fl (7.2-11.7); MONO # 0.9 K/uL (0.0-0.8); MONO % 3.9 % (0.0-10.0); NEUT # 19.4 K/uL (1.8-7.0); NEUT % 86.5 % (50.0-75.0); RBC 4.32 Mil/uL (4.40-5.90); RED CELL DISTRIBUTION WIDTH 13.7 % (11.5-14.5); WHITE BLOOD COUNT 22.5 K/uL (4.8-10.8)
[2018-06-28 06:38] LABS: ALBUMIN 3.4 g/dL (3.5-5.0); CALCIUM 8.8 mg/dL (8.4-10.2)
[2018-06-28] MEDS: Insulin Lispro (humaLOG) 100 Units/ml Inj SC SCH ×4 (08:33→21:11)
[2018-06-28] MEDS: Megestrol Acetate 40 mg/ml Cup PO SCH (08:51)
[2018-06-28] MEDS: Sodium Chloride 0.45% 1,000 ML IV SCH (08:52)
--- NOTE | 2018-06-28 09:42 | PCM.PYCHPN ---
Psychiatric Progress Note - Psychiatric Progress Note Patient seen today, length of contact: Pt evaluated, case discussed w/ team, chart reviewed Patient Chief Complaint: Behavioral Disturbances/ Poor appetite Problems Identified/Issues Discussed: No new events overnight. No acute behavioral issues. Patient seems to be at a new baseline of functioning due to chronic worsening dementia. He continues to have poor appetite and PO intake, but patient's family is not agreeable to PEG tube placement. Patient started on antibiotics for acute UTI yesterday. Connie Scratcher left message for patients son, , to discuss long term care pharmacist treatment options. Pending return call. Diagnostic Results: VPA <10 on 06/26/18 Medication Change: No Medical Record Reviewed: Yes Consults ordered or reviewed: Medicine consult Mental Status Examination - Cognitive Function Orientation: Person Memory: Impaired Attention: Poor Concentration: Poor Association: Loose Fund of Knowledge: Poor Decription of patient's judgement and insights: Chronic poor I/J - Mood Mood: Neutral - Affect Affect: Constricted - Speech Speech: Soft - Formal Thought Process Formal Thought Process: Loosening of associations Psychotic Thoughts and Behaviors: NO AH/VH - Suicidal Ideation Suicidal Ideation: No - Homicidal Ideation Homicidal Ideation: No Goal/Treatment Plan - Goal/Treatment Plan Need for Continued Stay: Severe functional impairment Progress Toward Problem(s) and Goals/Treatment Plan: Dementia with Behavioral Disturbances; Mood Disorder NOS -Continue Depakote, patient not currently compliant with treatment, VPA <10 -Continue Remeron -Family has declined PEG tube placement at this time; GI consult appreciated -Medicine consult- patient started on IVF for hypernatremia and antibiotics for acute UTI -PT -Dietitian consult -Disposition planning- will discuss [facility] treatment options with the family Estimated Date of D/C: 07/01/18
--- NOTE | 2018-06-28 15:06 | CP.PCM.PN ---
Subjective - Date & Time of Evaluation Date of Evaluation: 06/28/18 Time of Evaluation: 11:00 - Subjective Subjective: patient seen examined at bedside. he appears calm, awake, and alert at time of evaluation. HD stable, no acute distress Objective - Vital Signs/Intake and Output Vital Signs (last 24 hours): Temp Pulse Resp BP Pulse Ox 97.3 F L 101 H 18 119/76 96 06/27/18 06:00 06/27/18 16:19 06/27/18 16:19 06/27/18 16:19 06/13/18 23:26 Intake and Output: GEN: WDWN, alert, cooperative HEENT: NCAT, PERRL, EOMI HEART: RRR, +S1S2, NO MRG LUNG: CTAB, NO WRR ABD: soft, NT, ND, No HSM, No masses EXT: normal pedal pulses NEURO: awake, alert SKIN: warm, dry PSYCH: difficult to obtain due to dementia. currently calm. - Medications Medications: Current Medications Acetaminophen (Tylenol 325mg Tab) 650 mg PO Q4 PRN PRN Reason: Pain, moderate (4-7) Al Hydrox/Mg Hydrox/Simethicone (Maalox Plus 30 Ml) 30 ml PO Q4 PRN PRN Reason: Dyspepsia Amlodipine Besylate (Norvasc) 10 mg PO DAILY [facility] Last Admin: 06/28/18 08:51 Dose: Not Given Bismuth Subsalicylate (Pepto-Bismol) 524 mg PO Q4 PRN PRN Reason: Diarrhea Dextrose (Dextrose 50% Inj) 0 ml IV STAT PRN; Protocol PRN Reason: Hypoglycemia Protocol Dextrose (Glutose 15) 0 gm PO ONCE PRN; Protocol PRN Reason: Hypoglycemia Protocol Divalproex Sodium (Depakote Sprinkles) 1,000 mg PO DAILY@1300 [facility] Last Admin: 06/27/18 18:36 Dose: Not Given Donepezil HCl (Aricept) 10 mg PO HS [facility] Last Admin: 06/27/18 21:20 Dose: Not Given Famotidine (Pepcid) 20 mg PO DAILY [facility] Last Admin: 06/28/18 08:51 Dose: Not Given Glucagon (Glucagen Diagnostic Kit) 0 mg IM STAT PRN; Protocol PRN Reason: Hypoglycemia Protocol Haloperidol Lactate (Haldol) 0.5 mg IM Q6 PRN PRN Reason: Agitation Ceftriaxone Sodium 1 gm/ (Sodium Chloride) 100 mls @ 100 mls/hr IVPB DAILY [facility]; Protocol Last Admin: 06/28/18 08:40 Dose: 100 mls/hr Insulin Human Lispro (Humalog) 0 units SC [facility]; Protocol Last Admin: 06/28/18 08:33 Dose: Not Given Lorazepam (Ativan) 0.5 mg IM Q8 PRN PRN Reason: Agitation Magnesium Hydroxide (Milk Of Magnesia) 30 ml PO HS PRN PRN Reason: Constipation Megestrol Acetate (Megace) 400 mg PO DAILY [facility] Last Admin: 06/28/18 08:51 Dose: Not Given Mirtazapine (Remeron 15mg Odt) 15 mg PO HS [facility] Last Admin: 06/27/18 21:21 Dose: Not Given Propylthiouracil (Propylthiouracil) 50 mg PO DAILY [facility] Last Admin: 06/28/18 08:51 Dose: Not Given Risperidone (Risperdal M-Tab) 0.5 mg PO Q12 PRN PRN Reason: Agitation Last Admin: 06/25/18 12:39 Dose: 0.5 mg Tamsulosin HCl (Flomax) 0.4 mg PO DAILY [facility] Last Admin: 06/28/18 08:51 Dose: Not Given - Labs Labs: 06/28/18 05:30 06/28/18 05:30 PT 12.9 Seconds (9.8-13.1) 06/13/18 19:00 INR 1.1 06/13/18 19:00 APTT 33.7 Seconds (25.6-37.1) 06/13/18 19:00 Assessment and Plan - Assessment and Plan (Free Text) Plan: 87 year old male, hx of dementia, HTN, hyperthyroid, gastritis, BPH, admitted to the medical center for dementia with behavioral disturbances 15 days ago. Patient's WBC was found to be elevated 2 days ago, bands 2 yesterday, BUN 107, 99, Scr 2.7, 2.5, Na 159, K 5.5, patient HD stable. UA +LE, procal 0.25. Patient also has poor PO intake, family refuses PEG, however would like acute treatment of UTI likely secondary to urinary retention? and dehydration. Patient was initiated on Rocephin yesterday, 1/2 NS. Change fluids to D5W, as hyponatremia is likely free water deficit. Urology consult requested. UTI 2/2 urinary retention - afebrile, mild tachycardia 101 today - UA +LE, UCx pending - WBC improving from 24.9 to 22.5K, bands 2 yesterday - Rocephin day 2 today - Urology consult requested, appreciated, Dr. Lopes Hypernatremia Hyperkalemia - likely due to free water deficit - bolus 500cc D5W, and continue with D5W @ 100cc/hr, recheck tomorrow Poor PO intake - family declined PEG at this time - this may improve once UTI clears, reassess postinfection
[2018-06-28] MEDS: Divalproex 125 mg Sprinkle Capsule PO SCH (16:16)
[2018-06-28 16:49] VITALS: TEMP 98.5
[2018-06-29 07:39] LABS: CALCIUM 8.3 mg/dL (8.4-10.2)
[2018-06-29 07:42] LABS: BASO % 0.1 % (0.0-2.0); EOS # 0.1 K/uL (0.0-0.7); EOS % 0.2 % (0.0-4.0); HEMOGLOBIN 13.4 g/dL (12.0-18.0); LYMPH # 2.3 K/uL (1.0-4.3); LYMPH % 7.1 % (20.0-40.0); MEAN CELL VOLUME 98.1 fl (80.0-94.0); MEAN CORPUSCULAR HEMOGLOBIN 29.8 pg (27.0-31.0); MEAN CORPUSCULAR HGB CONC 30.4 g/dL (33.0-37.0); MEAN PLATELET VOLUME 9.2 fl (7.2-11.7); MONO # 1.1 K/uL (0.0-0.8); MONO % 3.5 % (0.0-10.0); NEUT # 28.8 K/uL (1.8-7.0); NEUT % 89.1 % (50.0-75.0); RBC 4.5 Mil/uL (4.40-5.90); RED CELL DISTRIBUTION WIDTH 14.2 % (11.5-14.5); WHITE BLOOD COUNT 32.3 K/uL (4.8-10.8)
[2018-06-29] MEDS: Megestrol Acetate 40 mg/ml Cup PO SCH (09:01)
[2018-06-29] MEDS: Insulin Lispro (humaLOG) 100 Units/ml Inj SC SCH ×3 (09:23→12:56)
[2018-06-29 11:29] VITALS: BP 157/87; PULSE 98; RESP 20
--- NOTE | 2018-06-29 11:45 | PCM.PYCHPN ---
Psychiatric Progress Note - Psychiatric Progress Note Patient seen today, length of contact: Pt evaluated, case discussed w/ team, chart reviewed Patient Chief Complaint: Behavioral Disturbances/ Poor appetite Problems Identified/Issues Discussed: No new events overnight. No acute behavioral issues. Patient is at his baseline of functioning. Dean Of Women confirmed w/ patient's family that they want continued treatment with IV fluids and antibiotics. They do not want PEG placement at this time. Diagnostic Results: VPA <10 on 06/26/18 Medication Change: No Medical Record Reviewed: Yes Consults ordered or reviewed: Medicine consult Mental Status Examination - Cognitive Function Orientation: Person Memory: Impaired Attention: Poor Concentration: Poor Association: Loose Fund of Knowledge: Poor Decription of patient's judgement and insights: Chronic poor I/J - Mood Mood: Neutral - Affect Affect: Constricted - Speech Speech: Soft - Formal Thought Process Formal Thought Process: Loosening of associations Psychotic Thoughts and Behaviors: NO AH/VH - Suicidal Ideation Suicidal Ideation: No - Homicidal Ideation Homicidal Ideation: No Goal/Treatment Plan - Goal/Treatment Plan Need for Continued Stay: Severe functional impairment Progress Toward Problem(s) and Goals/Treatment Plan: Dementia with Behavioral Disturbances; Mood Disorder NOS; patient is at his baseline of functioning -Continue Depakote -Continue Remeron -Family has declined PEG tube placement at this time; GI consult appreciated -Medicine consult- patient started on IVF for hypernatremia and antibiotics for acute UTI -PT -Dietitian consult -No 1:1 indicated at this time -Disposition planning Estimated Date of D/C: 07/01/18
[2018-06-29] MEDS ORDERED: Meropenem 1 GM in Sodium Chloride 0.9% 100 ML IVPB SCH (12:30)
[2018-06-29] MEDS: Divalproex 125 mg Sprinkle Capsule PO SCH (13:50)
--- NOTE | 2018-06-29 14:10 | CP.PCM.PN ---
Subjective - Date & Time of Evaluation Date of Evaluation: 06/29/18 Time of Evaluation: 14:06 - Subjective Subjective: pt somnolent at time of examination today continues to not take PO WBC increased to 32K despite Rocephin afebrile, however will escalate abx given stay in hospital facility, and worsening despite third gen cephalosporin cultures + gram neg rods discussed with ID, escalate abx to Merrem in consideration of ESBL as we await cultures recommend transfer to medical floor for further medical management Objective - Vital Signs/Intake and Output Vital Signs (last 24 hours): Temp Pulse Resp BP Pulse Ox 98.5 F 98 H 20 157/87 H 96 06/28/18 16:47 06/29/18 11:28 06/29/18 11:28 06/29/18 11:28 06/13/18 23:26 - Medications Medications: Current Medications Acetaminophen (Tylenol 325mg Tab) 650 mg PO Q4 PRN PRN Reason: Pain, moderate (4-7) Al Hydrox/Mg Hydrox/Simethicone (Maalox Plus 30 Ml) 30 ml PO Q4 PRN PRN Reason: Dyspepsia Amlodipine Besylate (Norvasc) 10 mg PO DAILY [facility] Last Admin: 06/29/18 09:01 Dose: Not Given Bismuth Subsalicylate (Pepto-Bismol) 524 mg PO Q4 PRN PRN Reason: Diarrhea Dextrose (Dextrose 50% Inj) 0 ml IV STAT PRN; Protocol PRN Reason: Hypoglycemia Protocol Dextrose (Glutose 15) 0 gm PO ONCE PRN; Protocol PRN Reason: Hypoglycemia Protocol Divalproex Sodium (Depakote Sprinkles) 1,000 mg PO DAILY@1300 [facility] Last Admin: 06/29/18 13:50 Dose: Not Given Donepezil HCl (Aricept) 10 mg PO HS [facility] Last Admin: 06/28/18 21:12 Dose: Not Given Famotidine (Pepcid) 20 mg PO DAILY [facility] Last Admin: 06/29/18 09:02 Dose: Not Given Glucagon (Glucagen Diagnostic Kit) 0 mg IM STAT PRN; Protocol PRN Reason: Hypoglycemia Protocol Haloperidol Lactate (Haldol) 0.5 mg IM Q6 PRN PRN Reason: Agitation Dextrose (Dextrose 5% In Water 1000 Ml) 1,000 mls @ 100 mls/hr IV .Q10H [facility] Stop: 06/29/18 15:36 Last Admin: 06/29/18 13:51 Dose: 100 mls/hr Meropenem 1 gm/ Sodium (Chloride) 100 mls @ 100 mls/hr IVPB Q8 [facility]; Protocol Last Admin: 06/29/18 14:04 Dose: 100 mls/hr Insulin Human Lispro (Humalog) 0 units SC ACHS [facility]; Protocol Last Admin: 06/29/18 12:56 Dose: 3 unit Lorazepam (Ativan) 0.5 mg IM Q8 PRN PRN Reason: Agitation Magnesium Hydroxide (Milk Of Magnesia) 30 ml PO HS PRN PRN Reason: Constipation Megestrol Acetate (Megace) 400 mg PO DAILY [facility] Last Admin: 06/29/18 09:01 Dose: Not Given Mirtazapine (Remeron 15mg Odt) 15 mg PO HS [facility] Last Admin: 06/28/18 21:12 Dose: Not Given Propylthiouracil (Propylthiouracil) 50 mg PO DAILY [facility] Last Admin: 06/29/18 09:02 Dose: Not Given Risperidone (Risperdal M-Tab) 0.5 mg PO Q12 PRN PRN Reason: Agitation Last Admin: 06/25/18 12:39 Dose: 0.5 mg Tamsulosin HCl (Flomax) 0.4 mg PO DAILY [facility] Last Admin: 06/29/18 09:01 Dose: Not Given - Labs Labs: 06/29/18 06:37 06/29/18 06:37 PT 12.9 Seconds (9.8-13.1) 06/13/18 19:00 INR 1.1 06/13/18 19:00 APTT 33.7 Seconds (25.6-37.1) 06/13/18 19:00 Assessment and Plan - Assessment and Plan (Free Text) Plan: 87 year old male, hx of dementia, HTN, hyperthyroid, gastritis, BPH, admitted to [facility] for dementia with behavioral disturbances 15 days ago. Patient's WBC was found to be elevated 2 days ago, bands 2 yesterday, BUN 107, 99, Scr 2.7, 2.5, Na 159, K 5.5, patient HD stable. UA +LE, procal 0.25. Patient also has poor PO intake, family refuses PEG, however would like acute treatment of UTI likely secondary to urinary retention? and dehydration. Patient was initiated on Rocephin yesterday, 1/2 NS. Change fluids to D5W, as hyponatremia is likely free water deficit. Urology consult requested. UTI 2/2 urinary retention - afebrile HD stable - UA +LE, UCx pending - WBC worsening to 32K from 22K yesterday - discussed with ID Dr. Mathew, escalate abx to Merrem in consideration for ESBL given stay in hospital facility, and worsening despite third gen cephalosporin - cultures + gram neg rods - Urology consult requested, appreciated, Dr. Lopes TIM - baseline SCr 1.3, BUN on admission was 30 - IMPROVING today to 73/1.8 - continue to hydrate and monitor renal function Hypernatremia Hyperkalemia - likely due to free water deficit - bolus 500cc D5W, and continue with D5W @ 100cc/hr, recheck tomorrow Poor PO intake - family declined PEG at this time - this may improve once UTI clears, reassess postinfection transfer to medical floor for further medical management
--- NOTE | 2018-06-29 14:46 | PCM.PYCHDC ---
Mental Status Examination - Mental Status Examination Orientation: Person Memory: Impaired Mood: Neutral Affect: Constricted Attention: Poor Concentration: Poor Association: Loose Fund of Knowledge: Poor Formal Thought Process: Loosening of associations Description of patient's judgement and insight: Chronic poor I/J Psychotic Thoughts and Behaviors: NO AH/VH Suicidal Ideation: No Current Homicidal Ideation?: No Discharge Summary - Discharge Note Reason for Hospitalization: HPI: 87 yo male, referred by senior care for worsening behavioral disturbances, violence towards his , non-compliance with medications, refusal to eat and poor PO intake. Patient is a poor historian and not cooperative with interview. He just answers "no" or "fuck" when asked questions. PMHx: HTN, Hyperthyroidism, Gastritis, BPH, Dementia w/ behavioral disturbance; Mood Disorder NOS ALL: Cortisone, Prednisone SHx: , resident at senior care, no drugs/etoh/cig use FHx: Unable to obtain family history from patient Laboratory Data: Abnormal Lab Results 06/28/18 06/28/18 06/28/18 06:01 11:12 15:42 WBC RBC Hgb Hct MCV MCH MCHC RDW Plt Count MPV Neut % (Auto) Lymph % (Auto) Jessamine % (Auto) Eos % (Auto) Baso % (Auto) Neut # (Auto) Lymph # (Auto) Jessamine # (Auto) Eos # (Auto) Baso # (Auto) Sodium Potassium Chloride Carbon Dioxide Anion Gap BUN Creatinine Est GFR ( Amer) Est GFR (Non-Af Amer) POC Glucose (mg/dL) 190 H 162 H 156 H Random Glucose Calcium Phosphorus Magnesium Free T4 TSH 3rd Generation 06/28/18 06/29/18 06/29/18 19:50 06:35 06:37 WBC 32.3 H RBC 4.50 Hgb 13.4 Hct 44.1 MCV 98.1 H MCH 29.8 MCHC 30.4 L RDW 14.2 Plt Count 247 MPV 9.2 Neut % (Auto) 89.1 H Lymph % (Auto) 7.1 L Jessamine % (Auto) 3.5 Eos % (Auto) 0.2 Baso % (Auto) 0.1 Neut # (Auto) 28.8 H Lymph # (Auto) 2.3 Jessamine # (Auto) 1.1 H Eos # (Auto) 0.1 Baso # (Auto) 0.0 Sodium Potassium Chloride Carbon Dioxide Anion Gap BUN Creatinine Est GFR ( Amer) Est GFR (Non-Af Amer) POC Glucose (mg/dL) 213 H 277 H Random Glucose Calcium Phosphorus Magnesium Free T4 TSH 3rd Generation 06/29/18 06/29/18 06:37 06:37 WBC RBC Hgb Hct MCV MCH MCHC RDW Plt Count MPV Neut % (Auto) Lymph % (Auto) Jessamine % (Auto) Eos % (Auto) Baso % (Auto) Neut # (Auto) Lymph # (Auto) Jessamine # (Auto) Eos # (Auto) Baso # (Auto) Sodium 153 H Potassium 3.9 Chloride 116 H Carbon Dioxide 25 Anion Gap 16 BUN 73 H Creatinine 1.8 H Est GFR ( Amer) 44 Est GFR (Non-Af Amer) 36 POC Glucose (mg/dL) Random Glucose 343 H Calcium 8.3 L Phosphorus 3.2 Magnesium 2.9 H Free T4 1.28 TSH 3rd Generation 3.81 Consultations:: List each consultation separately and include: 1. Reason for request. 2. Findings. 3. Follow-up Consultations: Medicine consult, GI consult, PT eval, Speech/Swallow Eval Summary of Hospital Course include:: 1. Description of specific treatment plan utilized for patients during their course of treatmen. 2. Summarize the time- course for resolution of acute symptoms and/or regressed behaviors. 3. Describe issues identified and worked on during hospitalization. 4. Describe medication utilized. 5. Describe medical problems identified and treated. 6. Reassessment of suicide risk Summary of Hospital Course: Patient was treated w/ Depakote and Remeron. As per medicine consult, patient needs to be transferred to medical unit for continued treatment. Drum Sprayer discussed case with patient's family (Raul) who stated that family wants continued medical treatment at this time, including IV fluids and antibiotics. They do not want the patient initiated on hospice care at this time. - Diagnosis (1) Dementia with behavioral disturbance Current Visit: Yes Status: Chronic (2) Mood disorder Current Visit: Yes Status: Chronic - Final Diagnosis (DSM 5) Condition upon Discharge: SERIOUS DSM 5: Dementia with Behavioral Disturbance; UTI Disposition: Trans to Other Acute Care Hosp Follow-up Treatment Plan: Dementia with Behavioral Disturbances; Mood Disorder NOS -Transfer to ER for further medical treatment -Drum Sprayer discussed case with patient's family (Raul) who stated that family wants continued medical treatment at this time, including IV fluids and antibiotics. They do not want the patient initiated on hospice care at this time. - Smoking Cessation Smoking Cessation Medication prescribed: No Reason for not providing: Not indicated - Antipsychotic Medications Pt discharged on 2 or more routine antipsychotic medications: No
--- NOTE | 2018-06-29 15:36 | PCM.BM ---
Treatment Plan Problems - Problems identified on initial assessmt Agitated/aggressive behavior Date Initiated: 06/14/18 Time Initiated: 00:13 Assessment reference: NA Status: Active Medication nonadherence Date Initiated: 06/14/18 Time Initiated: 00:13 Assessment reference: NA Status: Active Less Than Optimal Nutrition Time Initiated: 12:11 Treatment assets and liabiliti Patient Assests: good support system Patient Liabilities: imparied memory - Milieu Protocol Maintain good personal hygiene: daily Encourage regular showers, daily Remind patient to perform daily oral care, daily Assist patient to perform ADL's Conduct patient checks and document Observation sheet: Q15 minutes Maintain personal safety: every shift Educate patient to report safety concerns to staff, every shift Monitor environment for contraband/sharps Medication safety: Monitor for expected outcome, potential side effects: every shift, Assess barriers to learning: every shift, Assess readiness for medication education: every shift Milieu Narrative: Dementia with Behavioral Disturbances; Mood Disorder NOS -Transfer to ER for further medical treatment -Modeling And Simulation Analyst discussed case with patient's family (Raul) who stated that family wants continued medical treatment at this time, including IV fluids and anti biotics. They do not want the patient initiated on hospice care at this time. Family Contact Family involvement: Family/SO is involved Family contact: Patient agrees to contact, Family has been contacted by patient, Telephone contact initiated by staff Family contact name: Raul Stevenson - son Family contacted how many times per week?: 2 - Outside Agency [facility] Care involvment: Information-sharing Agency contact number: [phone] Discharge/Continuing Care - Education Needs Education Needs: Family Medication, Family Diagnosis/Disease Process, Family Coping Skills, Family Placement options, Family Activities of Daily Living, Family Nutrition, Family Uses of Medical Equipment, Family Health Pra ctices/Safety, Family Personal Hygiene/Grooming, Family Aftercare Safety Plan - Discharge Discharge Criteria: Tolerates medication w/o severe side effects, Free of agitation, Normal sleep pattern, Ability to care for self, Reduction of target symptoms, Other (Increased appetite) Discharge to:: Detention Facility - Additional Comments 06/15/18 14:13 Pt discussed in team meeting. Reason for hospitalization reviewed and discussed. Pt's social and medical issues reviewed. Pt's medications reviewed and discussed. Please refer to attending psychiatrist progress not for addition information. Since admission, pt is easily irritable and agitated; pt refusing to eat and take medications. Pt is presently on 1:1 due to safety precautions. Tx plan reviewed and discussed. SW to continue to follow case. - Treatment Team Participation Patient/Family/SO Statement: Dementia with Behavioral Disturbances; Mood Disorder NOS -Transfer to ER for further medical treatment -Modeling And Simulation Analyst discussed case with patient's family (Raul) who stated that family wants continued medical treatment at this time, including IV fluids and antibiotics. They do not want the patient initiated on hospice care at this time. Discussed with Family/SO: Yes (Via telephone) Was Patient/Family/SO present at Treatment Team Meeting: Yes Treatment Plan Review Patient participation: No Family/SO/Caregiver participation: No Additional Comments: Pt discussed in team meeting. Pt's tx plan reviewed. At time of team meeting at 10AM pt was pending urine culture results and with tentative discharge to facility on 07/01/2018. At that time, it was discussed to discontinue pt's 1:1 and move pt's closer tot he nurse station. Since team meeting, pt's prognosis has changed and pt is being transferred to the ED due to medical issues. - Problem Agitated/aggressive behavior Date Initiated: 06/13/18 Time Initiated: 00:13 Progress toward outcomes: unchanged (Pt continues to present with aggressive bx during cares and when re-directed.) Medication nonadherence Date Initiated: 06/13/18 Time Initiated: 00:13 Progress toward outcomes: unchanged (Pt continues to refuse to take his medications. Pt is intermittently compliant with medications if given by family during visiting hours.) Less Than Optimal Nutrition Date Initiated: 06/13/18 Time Initiated: 12:11 Progress toward outcomes: unchanged (Pt refusing to eat despite encouragement and motivation. Pt's appetite is poor.) - Discharge / Continuing Care Discharge to:: Detention Facility Health Needs: Follow up care/test, Doctor appointments, Special equipment, Nutritional, Medications/Rx, Recreational/Social
== END 2018-06-29 15:45 | disposition short-term general hospital (02) | DRG 884 ==
LOC: EDBD 17:50 → H.ER 17:50 → H.ERHOLD 22:26 → H.STEP 23:30 → UNDODISIN 06-15 13:00
PROVIDERS: ADMIT Psychiatry & Neurology Psychiatry; ATTEND Psychiatry & Neurology Psychiatry
DX: F01.51 Vascular dementia, unspecified severity, with behavioral disturbance (principal); F02.81 Dementia in other diseases classified elsewhere, unspecified severity, with behavioral disturbance; N39.0 Urinary tract infection, site not specified; E87.0 Hyperosmolality and hypernatremia; G30.9 Alzheimer's disease, unspecified; F39 Unspecified mood [affective] disorder; K29.70 Gastritis, unspecified, without bleeding; Z66 Do not resuscitate; Z88.0 Allergy status to penicillin; I10 Essential (primary) hypertension; Z87.891 Personal history of nicotine dependence; Z78.1 Physical restraint status; Z91.14 Patient's other noncompliance with medication regimen; N40.0 Benign prostatic hyperplasia without lower urinary tract symptoms; Z79.4 Long term (current) use of insulin; E05.90 Thyrotoxicosis, unspecified without thyrotoxic crisis or storm; R63.0 Anorexia

== ENCOUNTER 2018-06-29 16:03 | Inpatient (IN) | payer MEDICARE ==
--- NOTE | 2018-06-29 17:33 | ED PDOC ---
HPI: Male Pain Time Seen by Provider: 06/29/18 16:43 Chief Complaint (Nursing): Male Genitourinary Chief Complaint (Provider): Male Genitourinary History Per: Patient History/Exam Limitations: other (aggressive) Additional Complaint(s): 87 y/o male presents [facility] the ED [facility] and was sent by the primary medical team for a UTI. Patient was already started on antibiotic treatments and is only coming to the ED to switch admission order and to start medical admission. Dr. Bauer already started antibiotics and sepsis workup. Patient seen at bedside and is altered and aggressive. Patient is not oriented and not answering questions and pushing this provider away on attempts to auscultate on test. Patients vitals at bedside are stable. Past Medical History Reviewed: Historical Data, Nursing Documentation, Vital Signs Vital Signs: Last Vital Signs Temp 98.9 F 06/29/18 16:23 Pulse 82 06/29/18 16:23 Resp 18 06/29/18 16:23 BP 121/59 L 06/29/18 16:23 Pulse Ox 97 06/29/18 16:23 - Medical History PMH: Alzheimer's Disease, Dementia, HTN, Hypothyroidism Denies: Diabetes, Hepatitis, HIV, Seizures, Sexually Transmitted Disease - Home Medications Home Medications: Ambulatory Orders Medication Instructions Recorded Donepezil HCl [Aricept] 10 mg DAILY 06/13/18 Propylthiouracil 50 mg PO DAILY 06/13/18 Tamsulosin [Flomax] 0.4 mg PO DAILY 06/13/18 Dextrose 50% [Dextrose 50% Inj] 0 ml IV STAT PRN syr 06/29/18 Dextrose Oral [Glutose 15] 0 gm PO ONCE PRN tube 06/29/18 Divalproex [Depakote Sprinkles] 1,000 mg PO DAILY@1300 capsule 06/29/18 Famotidine [Pepcid] 20 mg PO DAILY tab 06/29/18 Glucagon [Glucagen Diagnostic Kit] 0 mg IM STAT PRN vial 06/29/18 LORazepam [Ativan] 0.5 mg IM Q8 PRN vial 06/29/18 Megestrol Acetate [Megace] 400 mg PO DAILY cup 06/29/18 amLODIPine [Norvasc] 10 mg PO DAILY tab 06/29/18 - Allergies Allergies/Adverse Reactions: Allergies Allergy/AdvReac Type Severity Reaction Status Date / Time cortisone Allergy RASH Verified 06/29/18 16:48 prednisone Allergy RASH Verified 06/29/18 16:48 Penicillins AdvReac Family Verified 06/29/18 16:48 uncertain Review of Systems Review Of Systems: ROS cannot be obtained secondary to pt's inabilty to answer questions. Physical Exam - Reviewed Nursing Documentation Reviewed: Yes Vital Signs Reviewed: Yes - Physical Exam Head Exam: Positive for: ATRAUMATIC, NORMOCEPHALIC Skin: Positive for: Normal Color, Warm, DRY Eye Exam: Positive for: EOMI, Normal appearance, PERRL Cardiovascular/Chest: Positive for: Regular Rate, Rhythm. Negative for: Murmur Respiratory: Positive for: Normal Breath Sounds (CTA bilaterally). Negative for: Respiratory Distress Gastrointestinal/Abdominal: Positive for: Normal Exam, Soft Extremity: Positive for: Normal ROM (moving all extremities), Other (IV in right anticubital; pneumatic compression devices on both lower limbs) Neurologic/Psych: Negative for: Oriented - ECG O2 Sat by Pulse Oximetry: 97 Medical Decision Making Medical Decision Making: Time: 17:28 Impression: Patient in ED to transfer care from psychiatry to medicine services. Confirmed with Dr. Bauer that sepsis workup has been done. Patient is on Meropenem. Admission order has been placed patient will be admitted. Scribe Attestation: Documented by Robles Adams acting as a scribe for Corrie Quijano MD. Provider Scribe Attestation: All medical record entries made by the Scribe were at my direction and personally dictated by me. I have reviewed the chart and agree that the record accurately reflects my personal performance of the history, physical exam, medic al decision making, and the department course for this patient. I have also personally directed, reviewed, and agree with the discharge instructions and disposition. Disposition - Disposition
[2018-06-29] MEDS ORDERED: Risperidone M tab 0.5MG PO PRN (17:48)
[2018-06-29] MEDS ORDERED: Dextrose 50% SYRINGE Inj (50 ml) IV PRN (18:04)
[2018-06-29] MEDS ORDERED: Glucagon Recombinant 1 mg Inj IM PRN (18:04)
--- NOTE | 2018-06-29 18:08 | CP.PCM.HP ---
<Audra Mcclain - Last Filed: 06/29/18 18:54> History of Present Illness - History of Present Illness History of Present Illness: HPI: 87 YO male with PMHx of HTN, dementia with behavior disturbance, mood disorder, BPH, hyperthyroidism presents to [facility] ED from inpatient [facility] after pt was unsuccessfully treated with IV abx for UTI. Pt was brought to [facility] from residential for increasing behavior problems, poor PO intake and poor medicine compliance. During the admission, pt was found to be positive for UTI, pt has been on tx for UTI with Rocephin but continued to have worsening leukocytosis despite tx. Of note, history is obtained from chart review and Medicine MD, unable to obtain any information from patient. Patient not answering any questions. PMHx: HTN, Hyperthyroidism, Gastritis, BPH, Dementia w/ behavioral disturbance; Mood Disorder NOS SHx: , resident at residential, no drugs/etoh/cig use Present on Admission - Present on Admission Any Indicators Present on Admission: No Past Patient History - Past Social History Smoking Status: Never Smoked Alcohol: None Drugs: Denies Home Situation {Lives}: Jail - CARDIAC Hx Hypertension: Yes - PULMONARY Hx Tuberculosis: No - NEUROLOGICAL Hx Alzheimer's Disease: Yes Hx Dementia: Yes Hx Seizures: No - RENAL Other/Comment: bph - ENDOCRINE/METABOLIC Hx Hypothyroidism: Yes - HEMATOLOGICAL/ONCOLOGICAL Hx Human Immunodeficiency Virus (HIV): No - MUSCULOSKELETAL/RHEUMATOLOGICAL Hx Falls: Yes - GENITOURINARY/GYNECOLOGICAL Hx Sexually Transmitted Disorders: No - PSYCHIATRIC Hx Substance Use: No Meds Allergies/Adverse Reactions: Allergies Allergy/AdvReac Type Severity Reaction Status Date / Time cortisone Allergy RASH Verified 06/29/18 16:48 prednisone Allergy RASH Verified 06/29/18 16:48 Penicillins AdvReac Family Verified 06/29/18 16:48 uncertain Physical Exam - Constitutional Appears: No Acute Distress, Other (patinet becomes agitated when MD tries to examined him. Uses his hands to push away MD ) - Eye Exam Eye Exam: EOMI - ENT Exam ENT Exam: Mucous Membranes Moist Results - Vital Signs Recent Vital Signs: Last Vital Signs Temp 98.9 F 06/29/18 16:23 Pulse 82 06/29/18 16:23 Resp 18 06/29/18 16:23 BP 121/59 L 06/29/18 16:23 Pulse Ox 97 06/29/18 17:45 Assessment & Plan - Assessment and Plan (Free Text) Assessment: Assessment/Plan: 87 YO male with PMHx of HTN, dementia with behavior disturbance, mood disorder, BPH, hyperthyroidism is admitted for a UTI, s/p failure with IV rocephin. Pt was admitted to [facility] for behavior problems and poor PO intake, family refuses PEG, however would like acute treatment of UTI likely secondary to urinary retention and dehydration. UTI 2/2 urinary retention -afebrile HD stable -UA +LE, UCx pending -WBC worsening to 32K from 22K yesterday -discussed with ID Dr. Mathew, escalate abx to Merrem in consideration for ESBL given stay in hospital facility, and worsening despite third gen cephalosporin -ID consulted; followup recs -cultures + gram neg rods -Urology consult requested, appreciated, Dr. Lopes Bacteremia -Bcx sig for gram neg rods -likely 2/2 to UTI bacteremia -leukocytosis with neutrophilia noted -started on Merrem -ID consulted, follow up recs TIM -baseline SCr 1.3, BUN on admission was 30 -IMPROVING today to 73/1.8 -continue to hydrate and monitor renal function Hypernatremia -likely due to free water deficit -c/w D5W @ 100cc/hr, recheck tomorrow Poor PO intake -family declined PEG at this time -this may improve once UTI clears, reassess post-infection Dementia with behavior disturbance, mood disorder -c/w medications -psych consulted -c/w 1:1 obs for patient safety Hyperthyroidism -c/w PTU NIDDM -HbA1c 7 (06/14/2018) -insulin sliding scale -hypoglyemia protocol DVT proplx -heparin SC Code status DNR/DNI <Eboni Bauer - Last Filed: 06/29/18 19:16> Results - Vital Signs Recent Vital Signs: Last Vital Signs Temp 98.9 F 06/29/18 16:23 Pulse 82 06/29/18 16:23 Resp 18 06/29/18 16:23 BP 121/59 L 06/29/18 16:23 Pulse Ox 97 06/29/18 18:57 Attending/Attestation - Attestation I have personally seen and examined this patient.: Yes I have fully participated in the care of the patient.: Yes I have reviewed all pertinent clinical information: Yes Notes (Text): 06/29/18 19:11 agree with findings and plan as above.
[2018-06-29] MEDS: Dextrose 5%/0.9% NS 1,000 ML IV SCH (18:36)
[2018-06-29] MEDS ORDERED: Insulin Regular 100 units/ml ONE (22:47)
[2018-06-29] MEDS: Insulin Regular 100 units/ml SC SCH (23:01)
[2018-06-30] MEDS: Meropenem 1 GM in Sodium Chloride 0.9% 100 ML IVPB SCH ×4 (01:02→17:44)
[2018-06-30] MEDS: Dextrose 5%/0.9% NS 1,000 ML IV SCH (04:20)
--- NOTE | 2018-06-30 09:04 | CP.PCM.CON ---
History of Present Illness - History of Present Illness History of Present Illness: Psychiatry consult note HPI: 87 yo male, initially admitted to the psychiatry unit for for worsening behavioral disturbances, violence towards his , non-compliance with medications, refusal to eat and poor PO intake. Patient was stabilized on Depakote and Remeron on the psychiatry unit. He developed hypernatremia, TIM, a UTI and bactermia and was transferred to the medical unit for continued treatment and management. Patient is currently at his baseline of functioning and is psychiatrically stable for referral back to skilled nursing when he is medically stable. Field Human Resources Manager spoke extensively to patient's family when he was a patient on the psychiatry unit. Yesterday patient's son, Raul, confirmed that patient's family wants continued medical treatment w/ IV fluids and antibiotics. They do not want PEG tube placement at this time despite patient's poor PO intake. Patient eats and takes medications best when assisted by his family during visiting hours. PMHx: HTN, Hyperthyroidism, Gastritis, BPH, DM, Dementia w/ behavioral disturbance; Mood Disorder NOS ALL: Cortisone, Prednisone, PCN SHx: , resident at skilled nursing, no drugs/etoh/cig use Impression: 87 yo male, currently at his baseline of functioning psychiatrically, is psychiatrically stable for referral back to skilled nursing when he is medically stable. -Continue Aricept, Depakote and Remeron -Recommend to check VPA level; if level <100, continue current dose Past Patient History - Past Medical History & Family History Past Medical History?: Yes - Past Social History Smoking Status: Never Smoked - CARDIAC Hx Cardiac Disorders: Yes Hx Hypertension: Yes - PULMONARY Hx Respiratory Disorders: No Hx Tuberculosis: No - NEUROLOGICAL Hx Neurological Disorder: Yes Hx Alzheimer's Disease: Yes Hx Dementia: Yes Hx Seizures: No - HEENT Hx HEENT Problems: No - RENAL Hx Chronic Kidney Disease: No Other/Comment: bph - ENDOCRINE/METABOLIC Hx Endocrine Disorders: Yes Hx Diabetes Mellitus Type 2: Yes Hx Hypothyroidism: Yes - HEMATOLOGICAL/ONCOLOGICAL Hx Blood Disorders: No Hx AIDS: No Hx Human Immunodeficiency Virus (HIV): No - INTEGUMENTARY Hx Dermatological Problems: No - MUSCULOSKELETAL/RHEUMATOLOGICAL Hx Musculoskeletal Disorders: Yes Hx Falls: Yes - GASTROINTESTINAL Hx Gastrointestinal Disorders: No - GENITOURINARY/GYNECOLOGICAL Hx Genitourinary Disorders: Yes Hx Prostate Problems: Yes (BPH) Hx Sexually Transmitted Disorders: No - PSYCHIATRIC Hx Psychophysiologic Disorder: Yes Hx Substance Use: No Other/Comment: hx of mood disorder - SURGICAL HISTORY Hx Surgeries: No - ANESTHESIA Hx Anesthesia: No Meds Allergies/Adverse Reactions: Allergies Allergy/AdvReac Type Severity Reaction Status Date / Time cortisone Allergy RASH Verified 06/29/18 16:48 prednisone Allergy RASH Verified 06/29/18 16:48 Penicillins AdvReac Family Verified 06/29/18 16:48 uncertain - Medications Medications: Current Medications Acetaminophen (Tylenol 325mg Tab) 650 mg PO Q6 PRN PRN Reason: Fever >100.4 F Amlodipine Besylate (Norvasc) 10 mg PO DAILY [facility] Dextrose (Dextrose 50% Inj) 0 ml IV STAT PRN; Protocol PRN Reason: Hypoglycemia Protocol Dextrose (Glutose 15) 0 gm PO ONCE PRN; Protocol PRN Reason: Hypoglycemia Protocol Divalproex Sodium (Depakote Sprinkles) 1,000 mg PO DAILY@1300 [facility] Donepezil HCl (Aricept) 10 mg PO DAILY [facility] Famotidine (Pepcid) 20 mg PO DAILY [facility] Glucagon (Glucagen Diagnostic Kit) 0 mg IM STAT PRN; Protocol PRN Reason: Hypoglycemia Protocol Haloperidol Lactate (Haldol) 0.5 mg IM Q6 PRN PRN Reason: Agitation Heparin Sodium (Porcine) (Heparin) 5,000 units SC Q12 [facility]; Protocol Last Admin: 06/29/18 23:00 Dose: 5,000 units Meropenem 1 gm/ Sodium (Chloride) 100 mls @ 100 mls/hr IVPB Q8 [facility]; Protocol Last Admin: 06/30/18 01:05 Dose: 100 mls/hr Dextrose (Dextrose 5% In Water 1000 Ml) 1,000 mls @ 100 mls/hr IV .Q10H [facility] Stop: 07/01/18 08:15 Insulin Human Regular (Humulin R) 0 units SC ACHS [facility]; Protocol Last Admin: 06/29/18 23:01 Dose: Not Given Lorazepam (Ativan) 0.5 mg IM Q8 PRN PRN Reason: Agitation Megestrol Acetate (Megace) 400 mg PO DAILY [facility] Mirtazapine (Remeron) 15 mg PO HS [facility] Last Admin: 06/29/18 23:39 Dose: 15 mg Propylthiouracil (Propylthiouracil) 50 mg PO DAILY [facility] Risperidone (Risperdal M-Tab) 0.5 mg PO Q12 PRN PRN Reason: Agitation Tamsulosin HCl (Flomax) 0.4 mg PO DAILY [facility] Results - Vital Signs Recent Vital Signs: Last Vital Signs Temp 98.2 F 06/30/18 00:40 Pulse 80 06/30/18 00:40 Resp 19 06/30/18 00:40 BP 120/47 L 06/30/18 00:40 Pulse Ox 98 06/30/18 00:40 - Labs Labs: Laboratory Results - last 24 hr 06/29/18 06/29/18 19:10 22:53 POC Glucose (mg/dL) 288 H 314 H
[2018-06-30] MEDS: Megestrol Acetate 40 mg/ml Cup PO SCH ×2 (10:35→16:53)
[2018-06-30] MEDS: Insulin Regular 100 units/ml SC SCH ×4 (10:37→22:55)
[2018-06-30 11:45] LABS: HEMOGLOBIN 12.1 g/dL (12.0-18.0); MEAN CELL VOLUME 98.3 fl (80.0-94.0); MEAN CORPUSCULAR HEMOGLOBIN 30.8 pg (27.0-31.0); MEAN CORPUSCULAR HGB CONC 31.4 g/dL (33.0-37.0); RBC 3.92 Mil/uL (4.40-5.90); RED CELL DISTRIBUTION WIDTH 13.5 % (11.5-14.5); WHITE BLOOD COUNT 23.4 K/uL (4.8-10.8)
[2018-06-30 12:07] LABS: CALCIUM 8.3 mg/dL (8.4-10.2)
--- NOTE | 2018-06-30 16:24 | CP.PCM.PN ---
<CaliEdwar jha - Last Filed: 06/30/18 16:19> Subjective - Date & Time of Evaluation Date of Evaluation: 06/30/18 Time of Evaluation: 08:00 - Subjective Subjective: Patient seen and evaluated at the bedside. No complaints. Slept well. Has been OOB to use bathroom. Objective - Vital Signs/Intake and Output Vital Signs (last 24 hours): Temp Pulse Resp BP Pulse Ox 98.6 F 78 15 111/50 L 95 06/30/18 01:45 06/30/18 10:36 06/30/18 01:45 06/30/18 10:36 06/30/18 01:45 - Medications Medications: Current Medications Acetaminophen (Tylenol 325mg Tab) 650 mg PO Q6 PRN PRN Reason: Fever >100.4 F Amlodipine Besylate (Norvasc) 10 mg PO DAILY [facility] Last Admin: 06/30/18 10:36 Dose: 10 mg Dextrose (Dextrose 50% Inj) 0 ml IV STAT PRN; Protocol PRN Reason: Hypoglycemia Protocol Dextrose (Glutose 15) 0 gm PO ONCE PRN; Protocol PRN Reason: Hypoglycemia Protocol Divalproex Sodium (Depakote Sprinkles) 1,000 mg PO DAILY@1300 [facility] Donepezil HCl (Aricept) 10 mg PO DAILY [facility] Last Admin: 06/30/18 10:35 Dose: 10 mg Famotidine (Pepcid) 20 mg PO DAILY [facility] Last Admin: 06/30/18 10:36 Dose: 20 mg Glucagon (Glucagen Diagnostic Kit) 0 mg IM STAT PRN; Protocol PRN Reason: Hypoglycemia Protocol Haloperidol Lactate (Haldol) 0.5 mg IM Q6 PRN PRN Reason: Agitation Heparin Sodium (Porcine) (Heparin) 5,000 units SC Q12 [facility]; Protocol Last Admin: 06/30/18 10:35 Dose: 5,000 units Meropenem 1 gm/ Sodium (Chloride) 100 mls @ 100 mls/hr IVPB Q8 [facility]; Protocol Last Admin: 06/30/18 10:36 Dose: 100 mls/hr Dextrose (Dextrose 5% In Water 1000 Ml) 1,000 mls @ 100 mls/hr IV .Q10H [facility] Stop: 07/01/18 08:15 Last Admin: 06/30/18 10:34 Dose: 100 mls/hr Insulin Human Regular (Humulin R) 0 units SC ACHS [facility]; Protocol Last Admin: 06/30/18 14:05 Dose: Not Given Lorazepam (Ativan) 0.5 mg IM Q8 PRN PRN Reason: Agitation Megestrol Acetate (Megace) 400 mg PO DAILY [facility] Last Admin: 06/30/18 10:35 Dose: 400 mg Mirtazapine (Remeron) 15 mg PO HS [facility] Last Admin: 06/29/18 23:39 Dose: 15 mg Propylthiouracil (Propylthiouracil) 50 mg PO DAILY [facility] Last Admin: 06/30/18 10:36 Dose: 50 mg Risperidone (Risperdal M-Tab) 0.5 mg PO Q12 PRN PRN Reason: Agitation Tamsulosin HCl (Flomax) 0.4 mg PO DAILY [facility] Last Admin: 06/30/18 10:35 Dose: 0.4 mg - Labs Labs: 06/30/18 11:25 06/30/18 11:25 - Constitutional Appears: Well, Non-toxic, No Acute Distress - Head Exam Head Exam: NORMAL INSPECTION - Eye Exam Eye Exam: Normal appearance - ENT Exam ENT Exam: Normal Oropharynx - Neck Exam Neck Exam: Normal Inspection - Respiratory Exam Respiratory Exam: Clear to Ausculation Bilateral. absent: Rales, Wheezes - Cardiovascular Exam Cardiovascular Exam: REGULAR RHYTHM, +S1, +S2 - GI/Abdominal Exam GI & Abdominal Exam: Soft, Normal Bowel Sounds. absent: Tenderness - Extremities Exam Extremities Exam: Normal Inspection. absent: Pedal Edema - Back Exam Back Exam: absent: CVA tenderness (L), CVA tenderness (R) - Neurological Exam Neurological Exam: Alert, Awake, Oriented x3 - Psychiatric Exam Psychiatric exam: Depressed, Flat Affect - Skin Skin Exam: Normal Color Assessment and Plan - Assessment and Plan (Free Text) Assessment: 87 YO male with PMHx of HTN, dementia with behavior disturbance, mood disorder, BPH, hyperthyroidism is admitted for a UTI, s/p failure with IV rocephin. Pt was admitted to [facility] for behavior problems and poor PO intake, family refuses PEG, however would like acute treatment of UTI likely secondary to urinary retention and dehydration. UTI 2/2 urinary retention -afebrile HD stable -UA +LE, UCx GNR, sensitivities pending -WBC worsening to 32K from 22K yesterday -discussed with ID Dr. Mathew, escalate abx to Meropenem in consideration for ESBL given stay in hospital facility, and worsening despite third gen cephalosporin -ID consulted; followup recs -Urology consult requested, appreciated, Dr. Lopes Bacteremia -Bcx sig for gram neg rods -likely 2/2 to UTI bacteremia -leukocytosis with neutrophilia noted; improved WBL 23 -started on Merrem -ID consulted, follow up recs TIM -Improved, creatinine 1.5 down from 1.8 -continue to hydrate and monitor renal function Hypernatremia -157 -likely due to free water deficit -c/w D5W @ 100cc/hr, recheck tomorrow Poor PO intake -family declined PEG at this time -this may improve once UTI clears, reassess post-infection Dementia with behavior disturbance, mood disorder -c/w medications -psych consulted -c/w 1:1 obs for patient safety Hyperthyroidism -c/w PTU NIDDM -HbA1c 7 (06/14/2018) -insulin sliding scale -hypoglyemia protocol DVT proplx -heparin SC Code status DNR/DNI <Devonte Metz D - Last Filed: 06/30/18 17:36> Objective - Vital Signs/Intake and Output Vital Signs (last 24 hours): Temp Pulse Resp BP Pulse Ox 98.2 F 76 20 137/69 93 L 06/30/18 16:53 06/30/18 16:53 06/30/18 16:53 06/30/18 16:53 06/30/18 16:53 - Medications Medications: Current Medications Acetaminophen (Tylenol 325mg Tab) 650 mg PO Q6 PRN PRN Reason: Fever >100.4 F Amlodipine Besylate (Norvasc) 10 mg PO DAILY [facility] Last Admin: 06/30/18 16:53 Dose: Not Given Dextrose (Dextrose 50% Inj) 0 ml IV STAT PRN; Protocol PRN Reason: Hypoglycemia Protocol Dextrose (Glutose 15) 0 gm PO ONCE PRN; Protocol PRN Reason: Hypoglycemia Protocol Divalproex Sodium (Depakote Sprinkles) 1,000 mg PO DAILY@1300 [facility] Last Admin: 06/30/18 16:49 Dose: Not Given Donepezil HCl (Aricept) 10 mg PO DAILY [facility] Last Admin: 06/30/18 16:52 Dose: Not Given Famotidine (Pepcid) 20 mg PO DAILY [facility] Last Admin: 06/30/18 16:53 Dose: Not Given Glucagon (Glucagen Diagnostic Kit) 0 mg IM STAT PRN; Protocol PRN Reason: Hypoglycemia Protocol Haloperidol Lactate (Haldol) 0.5 mg IM Q6 PRN PRN Reason: Agitation Heparin Sodium (Porcine) (Heparin) 5,000 units SC Q12 [facility]; Protocol Last Admin: 06/30/18 16:53 Dose: Not Given Meropenem 1 gm/ Sodium (Chloride) 100 mls @ 100 mls/hr IVPB Q8 [facility]; Protocol Last Admin: 06/30/18 10:36 Dose: 100 mls/hr Dextrose (Dextrose 5% In Water 1000 Ml) 1,000 mls @ 100 mls/hr IV .Q10H [facility] Stop: 07/01/18 08:15 Last Admin: 06/30/18 10:34 Dose: 100 mls/hr Insulin Human Regular (Humulin R) 0 units SC ACHS [facility]; Protocol Last Admin: 06/30/18 16:49 Dose: Not Given Lorazepam (Ativan) 0.5 mg IM Q8 PRN PRN Reason: Agitation Megestrol Acetate (Megace) 400 mg PO DAILY [facility] Last Admin: 06/30/18 16:53 Dose: Not Given Mirtazapine (Remeron) 15 mg PO HS [facility] Last Admin: 06/29/18 23:39 Dose: 15 mg Propylthiouracil (Propylthiouracil) 50 mg PO DAILY [facility] Last Admin: 06/30/18 16:53 Dose: Not Given Risperidone (Risperdal M-Tab) 0.5 mg PO Q12 PRN PRN Reason: Agitation Tamsulosin HCl (Flomax) 0.4 mg PO DAILY [facility] Last Admin: 06/30/18 16:53 Dose: Not Given - Labs Labs: 06/30/18 11:25 06/30/18 11:25 Attending/Attestation - Attestation I have personally seen and examined this patient.: Yes I have fully participated in the care of the patient.: Yes I have reviewed all pertinent clinical information, including history, physical exam and plan: Yes Notes (Text): 06/30/18 17:32 Patient seen and examined with resident. Case was discussed and agreed with assessment except with the findings of ESBL organism. Urine grew E coli but ESBL negative. Agreed however to continue Meropenem.
[2018-06-30] MEDS: Divalproex 125 mg Sprinkle Capsule PO SCH (16:49)
[2018-07-01] MEDS: Meropenem 1 GM in Sodium Chloride 0.9% 100 ML IVPB SCH ×2 (01:00→09:52)
[2018-07-01] MEDS: Insulin Regular 100 units/ml SC SCH ×4 (09:51→22:00)
[2018-07-01] MEDS: Megestrol Acetate 40 mg/ml Cup PO SCH (09:51)
--- NOTE | 2018-07-01 11:44 | CP.PCM.CON ---
History of Present Illness - History of Present Illness History of Present Illness: 87 YO male with PMHx of HTN, dementia with behavior disturbance, mood disorder, BPH, hyperthyroidism presents to [facility] ED from inpatient [facility]ys[facility] after pt was unsuccessfully treated with IV abx for UTI. Pt was brought to [facility] from long term for increasing behavior problems, poor PO intake and poor medicine compliance. During the admission, pt was found to be positive for UTI, pt has been on tx for UTI with Rocephin but continued to have worsening leukocytosis despite tx. Of note, history is obtained from chart review and Medicine MD, unable to obtain any information from patient. Patient not answering any questions. 87 y old male from [place] with behavioral disturbances. Leukocytosis with blood cultures positive for GNR not responding to rocephin and ID consulted Past Patient History - Past Medical History & Family History Past Medical History?: Yes - Past Social History Smoking Status: Never Smoked - CARDIAC Hx Cardiac Disorders: Yes Hx Hypertension: Yes - PULMONARY Hx Respiratory Disorders: No Hx Tuberculosis: No - NEUROLOGICAL Hx Neurological Disorder: Yes Hx Alzheimer's Disease: Yes Hx Dementia: Yes Hx Seizures: No - HEENT Hx HEENT Problems: No - RENAL Hx Chronic Kidney Disease: No Other/Comment: bph - ENDOCRINE/METABOLIC Hx Endocrine Disorders: Yes Hx Diabetes Mellitus Type 2: Yes Hx Hypothyroidism: Yes - HEMATOLOGICAL/ONCOLOGICAL Hx Blood Disorders: No Hx AIDS: No Hx Human Immunodeficiency Virus (HIV): No - INTEGUMENTARY Hx Dermatological Problems: No - MUSCULOSKELETAL/RHEUMATOLOGICAL Hx Musculoskeletal Disorders: Yes Hx Falls: Yes - GASTROINTESTINAL Hx Gastrointestinal Disorders: No - GENITOURINARY/GYNECOLOGICAL Hx Genitourinary Disorders: Yes Hx Prostate Problems: Yes (BPH) Hx Sexually Transmitted Disorders: No - PSYCHIATRIC Hx Psychophysiologic Disorder: Yes Hx Substance Use: No Other/Comment: hx of mood disorder - SURGICAL HISTORY Hx Surgeries: No - ANESTHESIA Hx Anesthesia: No Meds Allergies/Adverse Reactions: Allergies Allergy/AdvReac Type Severity Reaction Status Date / Time cortisone Allergy RASH Verified 06/29/18 16:48 prednisone Allergy RASH Verified 06/29/18 16:48 Penicillins AdvReac Family Verified 06/29/18 16:48 uncertain - Medications Medications: Current Medications Acetaminophen (Tylenol 325mg Tab) 650 mg PO Q6 PRN PRN Reason: Fever >100.4 F Amlodipine Besylate (Norvasc) 10 mg PO DAILY [facility] Last Admin: 07/01/18 09:51 Dose: Not Given Dextrose (Dextrose 50% Inj) 0 ml IV STAT PRN; Protocol PRN Reason: Hypoglycemia Protocol Dextrose (Glutose 15) 0 gm PO ONCE PRN; Protocol PRN Reason: Hypoglycemia Protocol Divalproex Sodium (Depakote Sprinkles) 1,000 mg PO DAILY@1300 [facility] Last Admin: 06/30/18 16:49 Dose: Not Given Donepezil HCl (Aricept) 10 mg PO DAILY [facility] Last Admin: 07/01/18 09:50 Dose: Not Given Famotidine (Pepcid) 20 mg PO DAILY [facility] Last Admin: 07/01/18 09:51 Dose: Not Given Glucagon (Glucagen Diagnostic Kit) 0 mg IM STAT PRN; Protocol PRN Reason: Hypoglycemia Protocol Haloperidol Lactate (Haldol) 0.5 mg IM Q6 PRN PRN Reason: Agitation Heparin Sodium (Porcine) (Heparin) 5,000 units SC Q12 [facility]; Protocol Last Admin: 07/01/18 09:51 Dose: Not Given Meropenem 1 gm/ Sodium (Chloride) 100 mls @ 100 mls/hr IVPB Q8 [facility]; Protocol Last Admin: 07/01/18 09:52 Dose: 100 mls/hr Insulin Human Regular (Humulin R) 0 units SC ACHS [facility]; Protocol Last Admin: 07/01/18 09:51 Dose: Not Given Lorazepam (Ativan) 0.5 mg IM Q8 PRN PRN Reason: Agitation Megestrol Acetate (Megace) 400 mg PO DAILY [facility] Last Admin: 07/01/18 09:51 Dose: Not Given Mirtazapine (Remeron) 15 mg PO HS [facility] Last Admin: 06/30/18 22:55 Dose: Not Given Propylthiouracil (Propylthiouracil) 50 mg PO DAILY [facility] Last Admin: 07/01/18 09:51 Dose: Not Given Risperidone (Risperdal M-Tab) 0.5 mg PO Q12 PRN PRN Reason: Agitation Tamsulosin HCl (Flomax) 0.4 mg PO DAILY [facility] Last Admin: 07/01/18 09:51 Dose: Not Given Results - Vital Signs Recent Vital Signs: Last Vital Signs Temp 98.2 F 06/30/18 16:53 Pulse 76 06/30/18 16:53 Resp 20 06/30/18 16:53 BP 137/69 06/30/18 16:53 Pulse Ox 93 L 06/30/18 16:53 - Labs Result Diagrams: 06/30/18 11:25 06/30/18 11:25 Labs: Laboratory Results - last 24 hr 06/30/18 06/30/18 06/30/18 11:25 11:25 11:25 WBC 23.4 H RBC 3.92 L Hgb 12.1 Hct 38.6 MCV 98.3 H MCH 30.8 MCHC 31.4 L RDW 13.5 Plt Count 260 Sodium 157 H Potassium 3.7 Chloride 123 H Carbon Dioxide 25 Anion Gap 13 BUN 47 H Creatinine 1.5 Est GFR ( Amer) 54 Est GFR (Non-Af Amer) 44 POC Glucose (mg/dL) Random Glucose 291 H Calcium 8.3 L Valproic Acid < 10.0 L 06/30/18 07/01/18 22:53 06:04 WBC RBC Hgb Hct MCV MCH MCHC RDW Plt Count Sodium Potassium Chloride Carbon Dioxide Anion Gap BUN Creatinine Est GFR ( Amer) Est GFR (Non-Af Amer) POC Glucose (mg/dL) 297 H 256 H Random Glucose Calcium Valproic Acid Assessment & Plan - Assessment and Plan (Free Text) Assessment: E coli bactermia secondary to UTI with leukocytosis not responding to rocephin on meropenem. Looking at sensitivities, we can switch from Meropenem to Zosyn 3.375 q 6h. Repeat blood culture in 2 days time.
[2018-07-01] MEDS: Divalproex 125 mg Sprinkle Capsule PO SCH (12:14)
[2018-07-01] MEDS: Piperacillin/Tazobact 3.375 GM in Sodium Chloride 0.9% 100 ML IVPB SCH ×2 (16:56→21:02)
[2018-07-02] MEDS: Piperacillin/Tazobact 3.375 GM in Sodium Chloride 0.9% 100 ML IVPB SCH ×4 (03:35→22:12)
[2018-07-02] MEDS: Insulin Regular 100 units/ml SC SCH ×4 (09:33→23:16)
[2018-07-02] MEDS: Megestrol Acetate 40 mg/ml Cup PO SCH (09:49)
[2018-07-02 12:05] LABS: HEMOGLOBIN 11.4 g/dL (12.0-18.0); MEAN CELL VOLUME 97.4 fl (80.0-94.0); MEAN CORPUSCULAR HGB CONC 31.8 g/dL (33.0-37.0); RBC 3.67 Mil/uL (4.40-5.90); RED CELL DISTRIBUTION WIDTH 13.4 % (11.5-14.5); WHITE BLOOD COUNT 14.9 K/uL (4.8-10.8)
[2018-07-02 12:17] LABS: BLOOD UREA NITROGEN 27 mg/dl (9-20); GFR NON-AFRICAN AMERICAN 52
--- NOTE | 2018-07-02 12:39 | CP.PCM.PN ---
<Prashant Cormiera - Last Filed: 07/02/18 12:37> Subjective - Date & Time of Evaluation Date of Evaluation: 07/02/18 Time of Evaluation: 10:15 - Subjective Subjective: Pt seen at bedside this am. Denied any physical complaints and was not very agreeable to exam - tried to swat at me with his hands. Objective - Vital Signs/Intake and Output Vital Signs (last 24 hours): Temp Pulse Resp BP Pulse Ox 98.2 F 61 19 120/63 96 07/02/18 08:09 07/02/18 08:09 07/02/18 08:09 07/02/18 08:09 07/02/18 08:09 - Medications Medications: Current Medications Acetaminophen (Tylenol 325mg Tab) 650 mg PO Q6 PRN PRN Reason: Fever >100.4 F Amlodipine Besylate (Norvasc) 10 mg PO DAILY [facility] Last Admin: 07/02/18 09:49 Dose: Not Given Dextrose (Dextrose 50% Inj) 0 ml IV STAT PRN; Protocol PRN Reason: Hypoglycemia Protocol Dextrose (Glutose 15) 0 gm PO ONCE PRN; Protocol PRN Reason: Hypoglycemia Protocol Divalproex Sodium (Depakote Sprinkles) 1,000 mg PO DAILY@1300 [facility] Last Admin: 07/01/18 12:14 Dose: Not Given Donepezil HCl (Aricept) 10 mg PO DAILY [facility] Last Admin: 07/02/18 09:48 Dose: Not Given Famotidine (Pepcid) 20 mg PO DAILY [facility] Last Admin: 07/02/18 09:49 Dose: Not Given Glucagon (Glucagen Diagnostic Kit) 0 mg IM STAT PRN; Protocol PRN Reason: Hypoglycemia Protocol Haloperidol Lactate (Haldol) 0.5 mg IM Q6 PRN PRN Reason: Agitation Heparin Sodium (Porcine) (Heparin) 5,000 units SC Q12 [facility]; Protocol Last Admin: 07/02/18 09:35 Dose: 5,000 units Piperacillin Sod/Tazobactam (Sod 3.375 gm/ Sodium Chloride) 100 mls @ 100 mls/hr IVPB Q6 [facility]; Protocol Last Admin: 07/02/18 09:25 Dose: 100 mls/hr Dextrose (Dextrose 5% In Water 1000 Ml) 1,000 mls @ 100 mls/hr IV .Q10H [facility] Stop: 07/03/18 11:16 Insulin Human Regular (Humulin R) 0 units SC ACHS [facility]; Protocol Last Admin: 07/02/18 12:33 Dose: Not Given Lorazepam (Ativan) 0.5 mg IM Q8 PRN PRN Reason: Agitation Megestrol Acetate (Megace) 400 mg PO DAILY [facility] Last Admin: 07/02/18 09:49 Dose: Not Given Mirtazapine (Remeron) 15 mg PO HS [facility] Last Admin: 07/01/18 21:11 Dose: Not Given Propylthiouracil (Propylthiouracil) 50 mg PO DAILY [facility] Last Admin: 07/02/18 09:49 Dose: Not Given Risperidone (Risperdal M-Tab) 0.5 mg PO Q12 PRN PRN Reason: Agitation Tamsulosin HCl (Flomax) 0.4 mg PO DAILY [facility] Last Admin: 07/02/18 09:49 Dose: Not Given - Labs Labs: 07/02/18 11:44 07/02/18 11:44 - Constitutional Appears: No Acute Distress, Chronically Ill - Head Exam Head Exam: NORMAL INSPECTION - Eye Exam Eye Exam: Normal appearance - Respiratory Exam Respiratory Exam: NORMAL BREATHING PATTERN. absent: Respiratory Distress - Extremities Exam Extremities Exam: absent: Pedal Edema - Neurological Exam Neurological Exam: Alert. absent: Oriented x3 - Psychiatric Exam Psychiatric exam: Agitated Assessment and Plan - Assessment and Plan (Free Text) Assessment: 87 yo male with PMHx of HTN, dementia with behavior disturbance, mood disorder, BPH, hyperthyroidism. Admitted for a UTI, s/p failure with IV rocephin. Pt was admitted to [facility] for behavior problems and poor PO intake. At this time, family refuses PEG, however would like acute treatment of UTI likely secondary to urinary retention and dehydration. Pending dispo tomorrow to hospice. Plan: UTI, secondary to urinary retention - Afebrile, hemodynamically stable - UA +LE, UCx GNR, pansensitive E. coli - WBC trending down- 14k today - ID consult- Dr. Mathew, originally was planning to escalate to meropenem in consideration for ESBL, but now changed to zosyn due to pansensitivity demonstrated in urine culture. - Urology consult requested, appreciated, Dr. Lopes Bacteremia - Blood culture +ve for pansensitive E. coli - Likely 2/2 to UTI bacteremia - Leukocytosis improving - ID consulted - recs as above TIM - Improved, creatinine 1.3 down from max 2.7 - Continue to hydrate and monitor renal function Hypernatremia - Resolved, Na 147 today - Was likely due to free water deficit - Continue with D5W @ 100cc/hr, continue to monitor Poor PO intake -Family declined PEG at this time -May be due to UTI; may improve after infection clears Dementia with behavior disturbance, mood disorder -Continue medications -Psych consulted Hyperthyroidism -Continue with current med PTU NIDDM - HbA1c 7 (06/14/2018) - Insulin coverage scale - Hypoglyemia protocol DVT prophylaxis -Heparin SC <Devonte Metz D - Last Filed: 07/02/18 14:23> Objective - Vital Signs/Intake and Output Vital Signs (last 24 hours): Temp Pulse Resp BP Pulse Ox 98.2 F 61 19 120/63 96 07/02/18 08:09 07/02/18 08:09 07/02/18 08:09 07/02/18 08:09 07/02/18 08:09 - Medications Medications: Current Medications Acetaminophen (Tylenol 325mg Tab) 650 mg PO Q6 PRN PRN Reason: Fever >100.4 F Amlodipine Besylate (Norvasc) 10 mg PO DAILY [facility] Last Admin: 07/02/18 09:49 Dose: Not Given Dextrose (Dextrose 50% Inj) 0 ml IV STAT PRN; Protocol PRN Reason: Hypoglycemia Protocol Dextrose (Glutose 15) 0 gm PO ONCE PRN; Protocol PRN Reason: Hypoglycemia Protocol Divalproex Sodium (Depakote Sprinkles) 1,000 mg PO DAILY@1300 [facility] Last Admin: 07/01/18 12:14 Dose: Not Given Donepezil HCl (Aricept) 10 mg PO DAILY [facility] Last Admin: 07/02/18 09:48 Dose: Not Given Famotidine (Pepcid) 20 mg PO DAILY [facility] Last Admin: 07/02/18 09:49 Dose: Not Given Glucagon (Glucagen Diagnostic Kit) 0 mg IM STAT PRN; Protocol PRN Reason: Hypoglycemia Protocol Haloperidol Lactate (Haldol) 0.5 mg IM Q6 PRN PRN Reason: Agitation Heparin Sodium (Porcine) (Heparin) 5,000 units SC Q12 [facility]; Protocol Last Admin: 07/02/18 09:35 Dose: 5,000 units Piperacillin Sod/Tazobactam (Sod 3.375 gm/ Sodium Chloride) 100 mls @ 100 ml s/hr IVPB Q6 [facility]; Protocol Last Admin: 07/02/18 09:25 Dose: 100 mls/hr Dextrose (Dextrose 5% In Water 1000 Ml) 1,000 mls @ 100 mls/hr IV .Q10H [facility] Stop: 07/03/18 11:16 Insulin Human Regular (Humulin R) 0 units SC ACHS [facility]; Protocol Last Admin: 07/02/18 12:33 Dose: Not Given Lorazepam (Ativan) 0.5 mg IM Q8 PRN PRN Reason: Agitation Megestrol Acetate (Megace) 400 mg PO DAILY [facility] Last Admin: 07/02/18 09:49 Dose: Not Given Mirtazapine (Remeron) 15 mg PO HS [facility] Last Admin: 07/01/18 21:11 Dose: Not Given Propylthiouracil (Propylthiouracil) 50 mg PO DAILY [facility] Last Admin: 07/02/18 09:49 Dose: Not Given Risperidone (Risperdal M-Tab) 0.5 mg PO Q12 PRN PRN Reason: Agitation Tamsulosin HCl (Flomax) 0.4 mg PO DAILY [facility] Last Admin: 07/02/18 09:49 Dose: Not Given - Labs Labs: 07/02/18 11:44 07/02/18 11:44 Attending/Attestation - Attestation I have personally seen and examined this patient.: Yes I have fully participated in the care of the patient.: Yes I have reviewed all pertinent clinical information, including history, physical exam and plan: Yes Notes (Text): 07/02/18 14:22 Patient seen and examined with resident. Case discussed and agreed with assessment. Patient for discharge to hospice care tomorrow at 3pm at at [facility]
[2018-07-02] MEDS: Divalproex 125 mg Sprinkle Capsule PO SCH (13:00)
--- NOTE | 2018-07-02 15:53 | CP.PCM.CON ---
History of Present Illness - History of Present Illness History of Present Illness: no complaints Past Patient History - Past Medical History & Family History Past Medical History?: Yes - Past Social History Smoking Status: Never Smoked - CARDIAC Hx Cardiac Disorders: Yes Hx Hypertension: Yes - PULMONARY Hx Respiratory Disorders: No Hx Tuberculosis: No - NEUROLOGICAL Hx Neurological Disorder: Yes Hx Alzheimer's Disease: Yes Hx Dementia: Yes Hx Seizures: No - HEENT Hx HEENT Problems: No - RENAL Hx Chronic Kidney Disease: No Other/Comment: bph - ENDOCRINE/METABOLIC Hx Endocrine Disorders: Yes Hx Diabetes Mellitus Type 2: Yes Hx Hypothyroidism: Yes - HEMATOLOGICAL/ONCOLOGICAL Hx Blood Disorders: No Hx AIDS: No Hx Human Immunodeficiency Virus (HIV): No - INTEGUMENTARY Hx Dermatological Problems: No - MUSCULOSKELETAL/RHEUMATOLOGICAL Hx Musculoskeletal Disorders: Yes Hx Falls: Yes - GASTROINTESTINAL Hx Gastrointestinal Disorders: No - GENITOURINARY/GYNECOLOGICAL Hx Genitourinary Disorders: Yes Hx Prostate Problems: Yes (BPH) Hx Sexually Transmitted Disorders: No - PSYCHIATRIC Hx Psychophysiologic Disorder: Yes Hx Substance Use: No Other/Comment: hx of mood disorder - SURGICAL HISTORY Hx Surgeries: No - ANESTHESIA Hx Anesthesia: No Meds Allergies/Adverse Reactions: Allergies Allergy/AdvReac Type Severity Reaction Status Date / Time cortisone Allergy RASH Verified 06/29/18 16:48 prednisone Allergy RASH Verified 06/29/18 16:48 Penicillins AdvReac Family Verified 06/29/18 16:48 uncertain - Medications Medications: Current Medications Acetaminophen (Tylenol 325mg Tab) 650 mg PO Q6 PRN PRN Reason: Fever >100.4 F Amlodipine Besylate (Norvasc) 10 mg PO DAILY [facility] Last Admin: 07/02/18 09:49 Dose: Not Given Dextrose (Dextrose 50% Inj) 0 ml IV STAT PRN; Protocol PRN Reason: Hypoglycemia Protocol Dextrose (Glutose 15) 0 gm PO ONCE PRN; Protocol PRN Reason: Hypoglycemia Protocol Divalproex Sodium (Depakote Sprinkles) 1,000 mg PO DAILY@1300 [facility] Last Admin: 07/01/18 12:14 Dose: Not Given Donepezil HCl (Aricept) 10 mg PO DAILY [facility] Last Admin: 07/02/18 09:48 Dose: Not Given Famotidine (Pepcid) 20 mg PO DAILY [facility] Last Admin: 07/02/18 09:49 Dose: Not Given Glucagon (Glucagen Diagnostic Kit) 0 mg IM STAT PRN; Protocol PRN Reason: Hypoglycemia Protocol Haloperidol Lactate (Haldol) 0.5 mg IM Q6 PRN PRN Reason: Agitation Heparin Sodium (Porcine) (Heparin) 5,000 units SC Q12 [facility]; Protocol Last Admin: 07/02/18 09:35 Dose: 5,000 units Piperacillin Sod/Tazobactam (Sod 3.375 gm/ Sodium Chloride) 100 mls @ 100 mls/hr IVPB Q6 [facility]; Protocol Last Admin: 07/02/18 09:25 Dose: 100 mls/hr Dextrose (Dextrose 5% In Water 1000 Ml) 1,000 mls @ 100 mls/hr IV .Q10H [facility] Stop: 07/03/18 11:16 Insulin Human Regular (Humulin R) 0 units SC ACHS [facility]; Protocol Last Admin: 07/02/18 12:33 Dose: Not Given Lorazepam (Ativan) 0.5 mg IM Q8 PRN PRN Reason: Agitation Megestrol Acetate (Megace) 400 mg PO DAILY [facility] Last Admin: 07/02/18 09:49 Dose: Not Given Mirtazapine (Remeron) 15 mg PO HS [facility] Last Admin: 07/01/18 21:11 Dose: Not Given Propylthiouracil (Propylthiouracil) 50 mg PO DAILY [facility] Last Admin: 07/02/18 09:49 Dose: Not Given Risperidone (Risperdal M-Tab) 0.5 mg PO Q12 PRN PRN Reason: Agitation Tamsulosin HCl (Flomax) 0.4 mg PO DAILY [facility] Last Admin: 07/02/18 09:49 Dose: Not Given Results - Vital Signs Recent Vital Signs: Last Vital Signs Temp 98.2 F 07/02/18 09:00 Pulse 61 07/02/18 09:00 Resp 19 07/02/18 09:00 BP 120/63 07/02/18 09:00 Pulse Ox 96 07/02/18 09:00 - Labs Result Diagrams: 07/02/18 11:44 07/02/18 11:44 Labs: Laboratory Results - last 24 hr 07/02/18 07/02/18 11:44 11:44 WBC 14.9 H RBC 3.67 L Hgb 11.4 L Hct 35.8 MCV 97.4 H MCH 31.0 MCHC 31.8 L RDW 13.4 Plt Count 259 Sodium 148 Potassium 4.0 Chloride 113 H Carbon Dioxide 26 Anion Gap 13 BUN 27 H Creatinine 1.3 Est GFR ( Amer) > 60 Est GFR (Non-Af Amer) 52 Random Glucose 234 H Calcium 8.0 L Magnesium 2.2 Assessment & Plan - Assessment and Plan (Free Text) Assessment: E coli bacteremia clinically improving on zosyn. Repeat blood culture x2
[2018-07-03 00:40] VITALS: BP 150/57; PULSE 75; RESP 18; TEMP 97.8; O2SAT 93
[2018-07-03] MEDS: Piperacillin/Tazobact 3.375 GM in Sodium Chloride 0.9% 100 ML IVPB SCH ×2 (04:23→09:25)
[2018-07-03] MEDS: Insulin Regular 100 units/ml SC SCH ×2 (06:59→12:58)
[2018-07-03 08:38] LABS: BASO % 0.1 % (0.0-2.0); EOS # 0.2 K/uL (0.0-0.7); EOS % 1.2 % (0.0-4.0); HEMOGLOBIN 11.6 g/dL (12.0-18.0); LYMPH # 1.4 K/uL (1.0-4.3); LYMPH % 9.7 % (20.0-40.0); MEAN CELL VOLUME 96.9 fl (80.0-94.0); MEAN CORPUSCULAR HEMOGLOBIN 31.1 pg (27.0-31.0); MEAN CORPUSCULAR HGB CONC 32.1 g/dL (33.0-37.0); MEAN PLATELET VOLUME 9.1 fl (7.2-11.7); MONO # 0.5 K/uL (0.0-0.8); MONO % 3.7 % (0.0-10.0); NEUT % 85.3 % (50.0-75.0); NRBC % 0.1 % (0.0-0.0); PLATELET COUNT 265 K/uL (130-400); RBC 3.72 Mil/uL (4.40-5.90); RED CELL DISTRIBUTION WIDTH 13.2 % (11.5-14.5); WHITE BLOOD COUNT 14.1 K/uL (4.8-10.8)
[2018-07-03 08:42] LABS: BLOOD UREA NITROGEN 22 mg/dl (9-20); CALCIUM 7.8 mg/dL (8.4-10.2); GFR NON-AFRICAN AMERICAN 57
--- NOTE | 2018-07-03 09:44 | CP.PCM.DIS ---
<Yosef Conrad - Last Filed: 07/03/18 15:30> Provider - Provider Date of Admission: 06/29/18 16:50 Attending physician: Eboni Bauer DO Time Spent in preparation of Discharge (in minutes): 20 Hospital Course - Lab Results Lab Results: Most Recent Lab Values WBC 14.1 K/uL (4.8-10.8) H 07/03/18 08:15 RBC 3.72 Mil/uL (4.40-5.90) L 07/03/18 08:15 Hgb 11.6 g/dL (12.0-18.0) L 07/03/18 08:15 Hct 36.0 % (35.0-51.0) 07/03/18 08:15 MCV 96.9 fl (80.0-94.0) H 07/03/18 08:15 MCH 31.1 pg (27.0-31.0) H 07/03/18 08:15 MCHC 32.1 g/dL (33.0-37.0) L 07/03/18 08:15 RDW 13.2 % (11.5-14.5) 07/03/18 08:15 Plt Count 265 K/uL (130-400) 07/03/18 08:15 MPV 9.1 fl (7.2-11.7) 07/03/18 08:15 Neut % (Auto) 85.3 % (50.0-75.0) H 07/03/18 08:15 Lymph % (Auto) 9.7 % (20.0-40.0) L 07/03/18 08:15 Cole % (Auto) 3.7 % (0.0-10.0) 07/03/18 08:15 Eos % (Auto) 1.2 % (0.0-4.0) 07/03/18 08:15 Baso % (Auto) 0.1 % (0.0-2.0) 07/03/18 08:15 Neut # (Auto) 12.0 K/uL (1.8-7.0) H 07/03/18 08:15 Lymph # (Auto) 1.4 K/uL (1.0-4.3) 07/03/18 08:15 Cole # (Auto) 0.5 K/uL (0.0-0.8) 07/03/18 08:15 Eos # (Auto) 0.2 K/uL (0.0-0.7) 07/03/18 08:15 Baso # (Auto) 0.0 K/uL (0.0-0.2) 07/03/18 08:15 Sodium 143 mmol/l (132-148) 07/03/18 08:15 Potassium 3.2 MMOL/L (3.6-5.0) L 07/03/18 08:15 Chloride 106 mmol/L (98-107) 07/03/18 08:15 Carbon Dioxide 24 mmol/L (22-30) 07/03/18 08:15 Anion Gap 16 (10-20) 07/03/18 08:15 BUN 22 mg/dl (9-20) H 07/03/18 08:15 Creatinine 1.2 mg/dl (0.8-1.5) 07/03/18 08:15 Est GFR ( Amer) > 60 07/03/18 08:15 Est GFR (Non-Af Amer) 57 07/03/18 08:15 POC Glucose (mg/dL) 306 mg/dL (65-110) H 07/03/18 05:36 Random Glucose 268 mg/dL (75-110) H 07/03/18 08:15 Calcium 7.8 mg/dL (8.4-10.2) L 07/03/18 08:15 Magnesium 2.2 MG/DL (1.6-2.3) 07/02/18 11:44 Valproic Acid < 10.0 ug/mL (50.0-100.0) L 06/30/18 11:25 - Hospital Course Hospital Course: 87 yo male with PMHx of HTN, dementia with behavior disturbance, mood disorder, BPH, hyperthyroidism. Admitted for a UTI, s/p failure with IV rocephin. Pt was admitted to [facility] for behavior problems and poor PO intake. Family refuses PEG, however would like acute treatment of UTI likely secondary to urinary retention and dehydration. As per ID patient was put on Zosyn for further treatment. PT also had hypernatremia, was put on D5w fluid and have normalized. Today Pt is hemodynamically stable, WBC trending down, UC positive E.Coli. Pt Na have improved, TIM have improved. Pt still have dementia and poor intake, Psych medication will be continued, Family still decline PEG tube. PT chart were reviewed, PT vitals and labs are stablized. Pt stable to be discharged into long-term + hospice care PT will continue on IV Zosyn Repeat blood culture x2 Discharge Exam - Head Exam Head Exam: NORMAL INSPECTION, NORMOCEPHALIC - Eye Exam Eye Exam: EOMI, Normal appearance, PERRL Pupil Exam: NORMAL ACCOMODATION, PERRL - Additional Findings Additional findings: PT was combative unable to make full physical exam Discharge Plan - Discharge Medications Prescriptions: Piperacillin Sodium/Tazobactam [Zosyn 3.375 Gram Vial] 3.375 gm IV Q6 #40 vial - Follow Up Plan Condition: GOOD Disposition: HOME/ ROUTINE <Devonte Metz - Last Filed: 07/03/18 18:47> Provider - Provider Date of Admission: 06/29/18 16:50 Attending physician: Eboni Bauer DO Hospital Course - Lab Results Lab Results: Most Recent Lab Values WBC 14.1 K/uL (4.8-10.8) H 07/03/18 08:15 RBC 3.72 Mil/uL (4.40-5.90) L 07/03/18 08:15 Hgb 11.6 g/dL (12.0-18.0) L 07/03/18 08:15 Hct 36.0 % (35.0-51.0) 07/03/18 08:15 MCV 96.9 fl (80.0-94.0) H 07/03/18 08:15 MCH 31.1 pg (27.0-31.0) H 07/03/18 08:15 MCHC 32.1 g/dL (33.0-37.0) L 07/03/18 08:15 RDW 13.2 % (11.5-14.5) 07/03/18 08:15 Plt Count 265 K/uL (130-400) 07/03/18 08:15 MPV 9.1 fl (7.2-11.7) 07/03/18 08:15 Neut % (Auto) 85.3 % (50.0-75.0) H 07/03/18 08:15 Lymph % (Auto) 9.7 % (20.0-40.0) L 07/03/18 08:15 Cole % (Auto) 3.7 % (0.0-10.0) 07/03/18 08:15 Eos % (Auto) 1.2 % (0.0-4.0) 07/03/18 08:15 Baso % (Auto) 0.1 % (0.0-2.0) 07/03/18 08:15 Neut # (Auto) 12.0 K/uL (1.8-7.0) H 07/03/18 08:15 Lymph # (Auto) 1.4 K/uL (1.0-4.3) 07/03/18 08:15 Cole # (Auto) 0.5 K/uL (0.0-0.8) 07/03/18 08:15 Eos # (Auto) 0.2 K/uL (0.0-0.7) 07/03/18 08:15 Baso # (Auto) 0.0 K/uL (0.0-0.2) 07/03/18 08:15 Neutrophils % (Manual) 80 % (42-75) H 07/03/18 08:15 Lymphocytes % (Manual) 14 % (20-50) L 07/03/18 08:15 Monocytes % (Manual) 4 % (0-10) 07/03/18 08:15 Eosinophils % (Manual) 2 % (0-7) 07/03/18 08:15 Platelet Estimate Normal (NORMAL) 07/03/18 08:15 Hypochromasia (manual) Slight 07/03/18 08:15 Sodium 143 mmol/l (132-148) 07/03/18 08:15 Potassium 3.2 MMOL/L (3.6-5.0) L 07/03/18 08:15 Chloride 106 mmol/L (98-107) 07/03/18 08:15 Carbon Dioxide 24 mmol/L (22-30) 07/03/18 08:15 Anion Gap 16 (10-20) 07/03/18 08:15 BUN 22 mg/dl (9-20) H 07/03/18 08:15 Creatinine 1.2 mg/dl (0.8-1.5) 07/03/18 08:15 Est GFR ( Amer) > 60 07/03/18 08:15 Est GFR (Non-Af Amer) 57 07/03/18 08:15 POC Glucose (mg/dL) 306 mg/dL (65-110) H 07/03/18 05:36 Random Glucose 268 mg/dL (75-110) H 07/03/18 08:15 Calcium 7.8 mg/dL (8.4-10.2) L 07/03/18 08:15 Magnesium 2.2 MG/DL (1.6-2.3) 07/02/18 11:44 Valproic Acid < 10.0 ug/mL (50.0-100.0) L 06/30/18 11:25 Attending/Attestation - Attestation I have personally seen and examined this patient.: Yes I have fully participated in the care of the patient.: Yes I have reviewed all pertinent clinical information, including history, physical exam and plan: Yes Notes (Text): 07/03/18 18:46 Patient seen and examined with resident. Agree with assessment. Patient transferred to long-term for hospice care.
--- NOTE | 2018-07-03 09:44 | CP.PCM.PN ---
Objective - Vital Signs/Intake and Output Vital Signs (last 24 hours): Temp Pulse Resp BP Pulse Ox 97.8 F 75 18 150/57 L 93 L 07/03/18 00:40 07/03/18 00:40 07/03/18 00:40 07/03/18 09:22 07/03/18 00:40 - Medications Medications: Current Medications Acetaminophen (Tylenol 325mg Tab) 650 mg PO Q6 PRN PRN Reason: Fever >100.4 F Amlodipine Besylate (Norvasc) 10 mg PO DAILY [facility] Last Admin: 07/03/18 09:22 Dose: 10 mg Dextrose (Dextrose 50% Inj) 0 ml IV STAT PRN; Protocol PRN Reason: Hypoglycemia Protocol Dextrose (Glutose 15) 0 gm PO ONCE PRN; Protocol PRN Reason: Hypoglycemia Protocol Divalproex Sodium (Depakote Sprinkles) 1,000 mg PO DAILY@1300 [facility] Last Admin: 07/02/18 13:00 Dose: Not Given Donepezil HCl (Aricept) 10 mg PO DAILY [facility] Last Admin: 07/03/18 09:24 Dose: 10 mg Famotidine (Pepcid) 20 mg PO DAILY [facility] Last Admin: 07/03/18 09:22 Dose: 20 mg Glucagon (Glucagen Diagnostic Kit) 0 mg IM STAT PRN; Protocol PRN Reason: Hypoglycemia Protocol Haloperidol Lactate (Haldol) 0.5 mg IM Q6 PRN PRN Reason: Agitation Heparin Sodium (Porcine) (Heparin) 5,000 units SC Q12 [facility]; Protocol Last Admin: 07/03/18 09:23 Dose: 5,000 units Piperacillin Sod/Tazobactam (Sod 3.375 gm/ Sodium Chloride) 100 mls @ 100 mls/hr IVPB Q6 [facility]; Protocol Last Admin: 07/03/18 09:25 Dose: 100 mls/hr Dextrose (Dextrose 5% In Water 1000 Ml) 1,000 mls @ 100 mls/hr IV .Q10H [facility] Stop: 07/03/18 11:16 Last Admin: 07/02/18 21:30 Dose: Not Given Potassium Chloride (Potassium Cl 10meq/50ml Sterile Water) 50 mls @ 50 mls/hr IVPB Q1 [facility] Stop: 07/03/18 10:59 Insulin Human Regular (Humulin R) 0 units SC ACHS [facility]; Protocol Last Admin: 07/03/18 06:59 Dose: 4 unit Megestrol Acetate (Megace) 400 mg PO DAILY [facility] Last Admin: 07/02/18 09:49 Dose: Not Given Mirtazapine (Remeron) 15 mg PO HS [facility] Last Admin: 07/02/18 22:15 Dose: Not Given Propylthiouracil (Propylthiouracil) 50 mg PO DAILY [facility] Last Admin: 07/03/18 09:24 Dose: 50 mg Risperidone (Risperdal M-Tab) 0.5 mg PO Q12 PRN PRN Reason: Agitation Tamsulosin HCl (Flomax) 0.4 mg PO DAILY [facility] Last Admin: 07/03/18 09:24 Dose: 0.4 mg - Labs Labs: 07/03/18 08:15 07/03/18 08:15
[2018-07-03] MEDS: Potassium CL 10 MEQ/50 ML 50 ML IVPB SCH ×2 (11:58→13:44)
[2018-07-03 11:59] LABS: EOSINOPHIL 2 % (0-7); LYMPHOCYTE 14 % (20-50); MONOCYTE 4 % (0-10); NEUTROPHIL 80 % (42-75); TOTAL CELLS COUNTED 100
[2018-07-03 12:00] LABS: HYPOCHROMIC SLIGHT; PLATELET ESTIMATE NORMAL (NORMAL)
[2018-07-03] MEDS: Megestrol Acetate 40 mg/ml Cup PO SCH (13:42)
[2018-07-03] MEDS: Divalproex 125 mg Sprinkle Capsule PO SCH (13:42)
--- NOTE | 2018-07-03 13:45 | PQF ---
PROVIDER RESPONSE TEXT: Diabetes with hyperglycemia REVIEWER QUERY TEXT: Diabetic Associated Manifestations Please specify any manifestations associated / due to diabetes Such as: -- DM with Hyperglycemia -- Diabetes with renal manifestation -- Diabetes with neurologic manifestation -- Diabetes with ophthalmic manifestation -- Diabetes with peripheral circulatory manifestation -- Other, please specify Random glucose:291 POC Glucose:288->314->297->256 Psych consult: Hx Diabetes Mellitus Type 2: Yes -insulin The patient's Clinical Indicators include: - Query created by: Miya Duran on 07/01/2018 3:20 PM Electronically signed by: Devonte Metz MD 07/03/2018 1:42 PM
== END 2018-07-03 15:40 | DRG 690 ==
LOC: H.ER 16:03 → H.ERHOLD 16:50 → H.MEDSURG1 06-30 01:57
PROVIDERS: ADMIT Student in an Organized Health Care Education/Training Program; ATTEND Student in an Organized Health Care Education/Training Program
DX: N39.0 Urinary tract infection, site not specified (principal); R78.81 Bacteremia; F02.81 Dementia in other diseases classified elsewhere, unspecified severity, with behavioral disturbance; E87.0 Hyperosmolality and hypernatremia; N17.9 Acute kidney failure, unspecified; G30.9 Alzheimer's disease, unspecified; B96.20 Unspecified Escherichia coli [E. coli] as the cause of diseases classified elsewhere; D72.828 Other elevated white blood cell count; E86.0 Dehydration; E11.65 Type 2 diabetes mellitus with hyperglycemia; R33.8 Other retention of urine; F39 Unspecified mood [affective] disorder; E03.9 Hypothyroidism, unspecified; I10 Essential (primary) hypertension; N40.1 Benign prostatic hyperplasia with lower urinary tract symptoms; E05.90 Thyrotoxicosis, unspecified without thyrotoxic crisis or storm; Z66 Do not resuscitate; Z91.14 Patient's other noncompliance with medication regimen; Z51.5 Encounter for palliative care; Z79.84 Long term (current) use of oral hypoglycemic drugs; Z88.0 Allergy status to penicillin; Z88.8 Allergy status to other drugs, medicaments and biological substances